=== PATIENT | female | born 1960 | race Caucasian/White ===

== ENCOUNTER 2016-11-20 15:51 | Inpatient (IN) | payer MEDICAID, OTHER ==
[2016-11-20] MEDS ORDERED: Ondansetron INJ* 2 MG/ML VIAL IV ONE (18:43)
--- NOTE | 2016-11-20 19:08 | RAD ---
INDICATION: Nausea and vomiting. History of small bowel obstruction COMPARISON: Abdomen November 23, thousand 13. TECHNIQUE: Erect and supine views of the abdomen are submitted. FINDINGS: Bones: There are no acute bony findings. Soft tissues: There are clips in the gallbladder fossa. The psoas margins are sharp. Bowel gas pattern: There are scattered air-fluid levels with mild dilatation of several small bowel loops. There is a paucity of gas in the colon. The findings are compatible with a small bowel obstruction. Calcifications: There are no abnormal calcifications. Other: None IMPRESSION: SMALL BOWEL OBSTRUCTION.
--- NOTE | 2016-11-20 19:31 | ED ---
Abdominal Pain/Female - HPI Summary HPI Summary: 56F presents with abdominal pain today. She states this feels like her previous SBO. Her most previous SBO was 2 years ago. She has never had surgery for her SBO. She admits to diarrhea, nausea and vomiting. Her says she has been getting twinges of pain once a month in the same area as her SBO that she has been complaining about. She denies any fever, dysuria, flank pain, constipation. She denies any one else being sick. She states she was on a boat when it started. She had her gallbladder removed. She has history of IBS. - History of Current Complaint Chief Complaint: EDOrlyuseaVomitDiarrh Stated Complaint: ABD PAIN,VOMITING Time Seen by Provider: 11/20/16 18:43 Pain Intensity: 0 Allergies/Adverse Reactions: Allergies Allergy/AdvReac Type Severity Reaction Status Date / Time Codeine Allergy Intermediate Nausea Verified 08/16/15 12:28 Propranolol [From Inderal] Allergy Intermediate Tingling Verified 08/16/15 12:28 Home Medications: Home Medications Dicyclomine CAP* [Bentyl CAP*] 20 mg PO QID PRN 11/20/16 [History Confirmed 07/04] Ergocalciferol [Vitamin D] 50,000 unit PO WEEKLY 11/20/16 [History Confirmed 07/04] Ferrous Sulfate TAB* 325 mg PO BID 11/20/16 [History Confirmed 11/20/16] Venlafaxine EXT RELEASE CAP* [Effexor Xr CAP*] 75 mg PO BID 11/20/16 [History Confirmed 11/20/16] busPIRone TAB* [Buspar TAB *] 15 mg PO TID 11/20/16 [History Confirmed 11/20/16] traZODone TAB* [Desyrel TAB*] 100 mg PO BEDTIME PRN 11/20/16 [History Confirmed 11/20/16] PMH/Surg Hx/FS Hx/Imm Hx Endocrine/Hematology History: Reports: Hx Anemia - thalacemia Denies: Hx Diabetes, Hx Unexplained Bleeding Cardiovascular History: Reports: Other Cardiovascular Problems/Disorders - valve problems Denies: Hx Aneurysm, Hx Angina, Hx Angioplasty, Hx Auto Implanted Cardiovert Defib, Hx Cardiac Arrest, Hx Cardiomegaly, Hx Congenital Heart Disease, Hx Congestive Heart Failure, Hx Coronary Artery Disease, Hx Deep Vein Thrombosis, Hx Embolism, Hx Hypercholesterolemia, Hx Hypotension, Hx Hypertension, Hx Pacemaker/ICD, Hx Peripheral Vascular Disease, Hx Rheumatic Fever, Hx Syncope, Hx Valvular Heart Disease GI History: Reports: Hx Obstructive Bowel History: Reports: Other Problems/Disorders - UTI x2 in the past Denies: Hx Renal Disease Musculoskeletal History: Reports: Other Musculoskeletal History - Pulled muscle in lower back in the past couple years Sensory History: Reports: Hx Contacts or Glasses Denies: Hx Cataracts, Hx Eye Injury, Hx Eye Prosthesis, Hx Glaucoma, Hx Legally Blind, Hx Macular Degeneration, Hx Vision Problem, Hx Deafness, Hx Hearing Aid, Hx Hearing Problem, Other Sensory Impairments Opthamlomology History: Reports: Hx Contacts or Glasses Denies: Hx Cataracts, Hx Eye Injury, Hx Eye Prosthesis, Hx Glaucoma, Hx Legally Blind, Hx Macular Degeneration, Hx Vision Problem, Other Sensory Impairments Neurological History: Reports: Hx Migraine Denies: Hx Dementia, Hx Developmental Delay, Hx Headaches, Hx Nerve Disease, Hx Seizures, Hx Spinal Cord Injury, Hx Transient Ischemic Attacks (TIA), Other Neuro Impairments/Disorders Psychiatric History: Reports: Hx Anxiety, Hx Depression, Hx Panic Disorder - Panic attack x1 in the past - Surgical History Surgery Procedure, Year, and Place: cholecystectomy, x1, Hx Anesthesia Reactions: No Infectious Disease History: No Infectious Disease History: Denies: Hx Clostridium Difficile, Hx Hepatitis, Hx Human Immunodeficiency Virus (HIV), Hx of Known/Suspected MRSA, Hx Shingles, Hx Tuberculosis, Hx Known/ Suspected VRE, Hx Known/Suspected VRSA, History Other Infectious Disease, Traveled Outside the [place] in Last 30 Days - Family History Known Family History: Positive: Cardiac Disease - Social History Alcohol Use: None Substance Use Type: Reports: None Smoking Status (MU): Light Every Day Tobacco Smoker Review of Systems Negative: Fever Negative: Chest Pain Negative: Shortness Of Breath Positive: Abdominal Pain, Vomiting, Diarrhea, Nausea All Other Systems Reviewed And Are Negative: Yes Physical Exam Triage Information Reviewed: Yes Vital Signs On Initial Exam: Initial Vitals Temp Pulse Resp BP Pulse Ox 98.1 F 110 20 92/70 100 11/20/16 15:54 11/20/16 15:54 11/20/16 15:54 11/20/16 15:54 11/20/16 15:54 Vital Signs Reviewed: Yes Appearance: Positive: Well-Appearing Skin: Positive: Warm, Dry Head/Face: Positive: Normal Head/Face Inspection Eyes: Positive: Normal, Conjunctiva Clear Respiratory/Lung Sounds: Positive: Clear to Auscultation, Breath Sounds Present Cardiovascular: Positive: Normal, RRR Abdomen Description: Positive: Soft, Other: - tender RUQ moderate, no rebound. Bowel Sounds: Positive: Present Diagnostics - Vital Signs Vital Signs Temp Pulse Resp BP Pulse Ox 11/20/16 18:30 99 19 90/68 100 11/20/16 18:26 98.1 F 104 18 109/68 100 11/20/16 18:25 99 100 11/20/16 18:22 109/68 11/20/16 18:10 97.4 F 105 16 92/63 96 11/20/16 15:54 98.1 F 110 20 92/70 100 - Laboratory Result Diagrams: 11/20/16 19:45 11/20/16 19:45 Lab Statement: Any lab studies that have been ordered have been reviewed, and results considered in the medical decision making process. - Radiology abd Xray Interpretation: Positive (See Comments) - sbo Radiology Interpretation Completed By: Radiologist Abdominal Pain Fem Course/Dx - Course Course Of Treatment: 56F presents with abdominal pain today. She states this feels like her previous SBO. Her most previous SBO was 2 years ago. She has never had surgery for her SBO. She admits to diarrhea, nausea and vomiting. Her says she has been getting twinges of pain once a month in the same area as her SBO that she has been complaining about. She denies any fever, dysuria, flank pain, constipation. She denies any one else being sick. She states she was on a boat when it started. She had her gallbladder removed. She has history of IBS. on exam tender in RUQ. abd xray shows SBO. talked with dr ragland said to call surgery to ask if will admit. dr rosenthal wants hospitalist to admit who agree. - Diagnoses Differential Diagnosis: Positive: Urinary Tract Infection, Other - SBO, gastroenteritis Provider Diagnoses: Small bowel obstruction - Provider Notifications Discussed Care Of Patient With: dr rosenthal Time Discussed With Above Provider: 08:00 - admit to hospitalist service Discharge - Discharge Plan Condition: Stable Disposition: ADMITTED TO [facility]
[2016-11-20] MEDS: NS 0.9% 1000 ML* 2,000 ML IV ONE (19:46)
[2016-11-20 20:01] LABS: Hematocrit 31 % (35-47); Hemoglobin 9.2 g/dl (12.0-16.0); Mean Corpuscular HGB Conc 30 g/dl (31-36); Mean Corpuscular Hemoglobin 20 pg (27-31); Mean Corpuscular Volume 66 fL (80-97); Mean Platelet Volume 7 um3 (7.4-10.4); Red Blood Count 4.71 10^6/ul (4.0-5.4); Red Cell Distribution Width 23 % (10.5-15); White Blood Count 14.7 10^3/ul (3.5-10.8)
[2016-11-20 20:03] LABS: Add Diff/Slide Review? Slide Review Added; Comments Flag Yes
[2016-11-20 20:12] LABS: ALT 10 U/L (7-52); AST 7 U/L (13-39); Albumin 2.8 g/dL (3.2-5.2); Alkaline Phosphatase 93 U/L (34-104); Anion Gap 9 mmol/L (2-11); BUN/Creatinine Ratio 26.4 (8-20); Blood Urea Nitrogen 24 mg/dL (6-24); CO2 Carbon Dioxide 23 mmol/L (22-32); Calcium 8.1 mg/dL (8.6-10.3); Chloride 103 mmol/L (101-111); EGFR African American 81.9 (>60); EGFR Non-African American 63.7 (>60); Globulin 3.7 g/dL (2-4); Glucose 99 mg/dL (70-100); Lipase < 10 U/L (11.0-82.0); Potassium 3.4 mmol/L (3.5-5.0); Sodium 135 mmol/L (133-145); Total Protein 6.5 g/dL (6.4-8.9)
[2016-11-20] MEDS ORDERED: Ondansetron INJ* 2 MG/ML VIAL IV PRN (20:57)
[2016-11-20] MEDS ORDERED: Acetaminophen SUPP* 650 MG SUPP PR PRN (20:57)
[2016-11-20] MEDS ORDERED: NS 0.9% 1000 ML* 1,000 ML IV ONE (21:09)
[2016-11-20] MEDS ORDERED: Iohexol 300* (CONTRAST) 10 ML SDV IV ONE (21:47)
[2016-11-20] MEDS: NS 0.9% 1000 ML* 1,000 ML IV SCH (22:16)
[2016-11-20] MEDS: KCL 10 MEQ/50 ML IVPREMIX* 10 MEQ/50 ML BAG IV SCH (22:18)
[2016-11-20] MEDS: Heparin VIAL(*) 5000 UNITS/ML VIAL (FIVE THOUSAND) SUBCUT SCH (22:58)
[2016-11-21] MEDS: KCL 10 MEQ/50 ML IVPREMIX* 10 MEQ/50 ML BAG IV SCH ×2 (00:16→01:24)
[2016-11-21] MEDS: NS 0.9% 1000 ML* 1,000 ML IV SCH ×2 (01:12→23:00)
--- NOTE | 2016-11-21 01:35 | PN ---
Progress Note - Progress Note Date of Service: 11/21/16 Note: Radiology on-call reported ? closed loop SBO as well as a 7mm mid- to distal R ureteral stone; will need urology consult in AM.
[2016-11-21] MEDS ORDERED: HYDROmorphone* 1 MG/ML 1 ML SYR ONE (02:47)
[2016-11-21] MEDS: HYDROmorphone* 1 MG/ML 1 ML SYR IV PRN ×4 (02:51→11:37)
[2016-11-21 02:56] LABS: Urine Bacteria 1+ (Absent); Urine Bilirubin Negative (Negative); Urine Glucose Negative (Negative); Urine Nitrite Negative (Negative)
[2016-11-21] MEDS: Levofloxacin 750 MG IVPREMIX(* 750 MG/150 ML BAG IVPB SCH (03:09)
--- NOTE | 2016-11-21 03:17 | HP ---
CC: Dr. Flores; Dr. Leigh * HISTORY AND PHYSICAL: DATE OF ADMISSION: 11/20/16 PRIMARY CARE PROVIDER: Dr. Flores. ATTENDING PHYSICIAN WHILE IN THE HOSPITAL: Ck Garcia MD * (report dictated by Alberto Abdul NP). CHIEF COMPLAINT: Abdominal pain. CONSULTING SURGEON: Dr. Leigh. HISTORY OF PRESENT ILLNESS: Ms. Evangelista is a 56-year-old female patient who has a history of thalassemia minor, anemia, history of SBO, anxiety, insomnia, IBS, and history of aortic stenosis because she had an echocardiogram six weeks ago; we will try to get that report from [place]. I am putting an order in for that. She presents today stating that yesterday she developed some lower abdominal discomfort similar with her previous SBOs and associated nausea and vomiting. She states the pain progressed throughout the day yesterday and this morning. The vomiting was getting worse, she was not feeling well. When her returned home from work today, she was still nauseous, having pain and vomiting. The patient was concerned, she felt that this was similar to her previous SBO, so they immediately recognized the symptoms again and the patient decided to come into the hospital to be evaluated. She denied having any fevers or chills. She denied having any chest pain. There is abdominal pain per my HPI and she states that she typically can walk up a flight of stairs and not have any difficulty with this. She came in, she was evaluated. Abdominal x -ray did show that she had SBO, so the hospitalist service was asked to evaluate for admission. PAST MEDICAL HISTORY: Significant for: 1. SBO in the past. 2. Anxiety. 3. Thalassemia minor. 4. Anemia. 5. Insomnia. 6. IBS. 7. Aortic stenosis, followed at [place]. PAST SURGICAL HISTORY: 1. She has had a . 2. Laparoscopic cholecystectomy. HOME MEDICATIONS: According to her recall include: 1. Bentyl 20 mg p.o. 4 times a day as needed. 2. Trazodone 100 mg at bedtime as needed. 3. Effexor 75 mg p.o. b.i.d. 4. BuSpar 15 mg p.o. t.i.d. 5. Iron 1 tablet p.o. b.i.d. 6. Vitamin D 50,000 units weekly. ALLERGIES TO MEDICATIONS: Include CODEINE and PROPANOL. FAMILY HISTORY: Mother had ovarian cancer. Father had liver cancer. SOCIAL HISTORY: She rarely drinks alcohol. She is half a pack a day smoker for 40 years. Surrogate decision make is her , Brian. REVIEW OF SYSTEMS: There is no documented fever. She denied having any significant weight change. There was no double vision. There was no ear discharge. She denied having any rhinorrhea. There was no sore throat. No thyroid enlargement. She denied having any chest pain. There was no orthopnea. There was no nocturnal dyspnea. There was abdominal pain per my HPI. There was nausea and vomiting per my HPI. There was some diarrhea. There was no dysuria, no frequency, no seizure. No loss of consciousness. No pruritus, no skin ulceration. Review of 14 systems completed, all others negative. PHYSICAL EXAMINATION GENERAL: At this time, Ms. Evangelista is a 56-year-old female patient. She is sitting in the ER stretcher. She does not appear to be in any acute distress. She is awake and alert. She is well developed, well nourished. VITAL SIGNS: Blood pressure of 109/68 with a pulse 104, respirations 18, O2 sat of 100%, temperature 98.1. HEENT: Head is atraumatic, normocephalic. Eyes: EOMs are intact. Sclerae are anicteric, not pale. Throat: Oral mucosa appears to be moist. No oropharyngeal erythema. NECK: Supple. LUNGS: Clear to auscultation bilaterally. No wheezes, rales or rhonchi. HEART: Sounds S1 and S2. Regular rate and rhythm. No murmurs, rubs, or gallops. ABDOMEN: Soft. Mildly distended. Bowel sounds hypoactive. EXTREMITIES: Pulses were 2+ throughout. She is able to move all 4 extremities with 5/5 strength. She had no peripheral edema noted. NEUROLOGIC: The patient is awake, alert, and oriented x3. Tongue midline. Human Resources Receptionist are equal. No gross focal deficits. SKIN: Intact. LABORATORY DATA/DIAGNOSTIC DATA: Today revealed a WBC of 14.7, RBC of 4.71, hemoglobin of 9.2, hematocrit of 30, platelet count of 508. Sodium 135, potassium 3.4, chloride 103, bicarbonate 23, BUN 24, creatinine 0.91, glucose 99 , lactic 0.6, calcium 8.1, total bilirubin 0.4, AST 7, ALT 10, alk phos was 93, CRP was 103, lipase less than 10. She had an abdominal x-ray obtained today, impression: Small bowel obstruction. She had an EKG obtained today with impression: No previous one for comparison unfortunately, but the EKG today showed sinus rhythm with a rate of 97. She had no ST elevation. She does appear to have intraventricular conduction delay. No ST elevations or T-wave inversions are noted. Unfortunately, I do not have a previous EKG for comparison. I feel she was inverted in V1 only. Old medical records were reviewed. ASSESSMENT AND PLAN: Ms. Evangelista is a 56-year-old female patient coming into the ER today with complaints of nausea, vomiting, and lower quadrant abdominal pain, on evaluation found to have small bowel obstruction on x-ray, hospitalist service was asked to evaluate for admission. She will be admitted under observation status for: 1. Small bowel obstruction. At this point, she is pretty in tune with her symptoms. She is not nauseous or vomiting. Her pain is not severe. Her exam was pretty benign. She is nontender, mildly distended. I am planning to get a CT of the abdomen and pelvis. I will put an NG tube in if she starts vomiting or worsening pain. We will give her IV fluids, antiemetics. I did touch base with Dr. Leigh. She will evaluate the patient in the morning. We will get a repeat KUB in the morning and her lactic acid was stable. 2. Leukocytosis, this is probably secondary to the vomiting. She does appear to be actively infected. If she spikes the fever, I will put her on antibiotics. I will get blood cultures and a urine and the CT is pending, and we will continue to monitor her closely. 3. History of thalassemia minor with anemia, we will follow her H and H closely. 4. History of anxiety and depression, continue with supportive care. 5. Irritable bowel syndrome, again we will monitor, I will start her Bentyl when able. 6. DVT prophylaxis, I will place her on heparin subcu. 7. History of aortic stenosis. I am going to try to get her records from [place], she had an echo 6 weeks ago. 8. Code status, full code. 9. Fluids, nutrition. She can be n.p.o. She will have normal saline at 100 an hour. TIME SPENT: Time spent on the admission 60 minutes, greater than half the time was spent [id number] with the patient, obtaining my history and physical, the other half time was spent going over the plan of care with the patient and implementing my plan of care. I did discuss the plan of care with my attending, Dr. Garcia, he is in agreement. ALBERTO ABDUL, TELEVISION NEWS REPORTER [id number]/[facility] #: [id number] MTDAdriano
[2016-11-21] MEDS: Heparin VIAL(*) 5000 UNITS/ML VIAL (FIVE THOUSAND) SUBCUT SCH ×3 (05:59→21:23)
[2016-11-21 06:31] LABS: Hematocrit 22 % (35-47); Hemoglobin 6.7 g/dl (12.0-16.0); Mean Corpuscular HGB Conc 30 g/dl (31-36); Mean Corpuscular Hemoglobin 20 pg (27-31); Mean Platelet Volume 7 um3 (7.4-10.4); Red Blood Count 3.34 10^6/ul (4.0-5.4); White Blood Count 5.7 10^3/ul (3.5-10.8)
[2016-11-21 06:33] LABS: Comments Flag Yes; Mean Corpuscular Volume 67 fL (80-97); Red Cell Distribution Width 23 % (10.5-15)
[2016-11-21 06:41] LABS: BUN/Creatinine Ratio 22.4 (8-20); Calcium 6.9 mg/dL (8.6-10.3); EGFR African American 100.9 (>60); EGFR Non-African American 78.4 (>60); Potassium 3.8 mmol/L (3.5-5.0)
--- NOTE | 2016-11-21 08:03 | RAD ---
Indication: Right flank pain. Contrast: Administered 80.7 ml of OMNIPAQUE 300 mgi/ml CT of the abdomen and pelvis was performed after oral and IV contrast administration. Coronal and sagittal reconstructed images were obtained The lung bases demonstrate no pleural fluid, nodules or masses. Heart is of normal size without evidence of pericardial effusion. The liver is normal in size. No focal lesions or intrahepatic ductal dilatation is noted. The patient status post cholecystectomy. The pancreas demonstrates no mass or pancreatic duct dictation. No adrenal lesions are noted. There is right hydronephrosis and hydroureter present. There is a calculus in the distal right ureter measuring up to 6 mm. There is delay of excretion of the right kidney. The left kidney demonstrates no hydronephrosis. There are dilated loops of small bowel noted. There is a possibility of fluid in the distal ileum. The possibility of a small bowel obstruction should BE considered with suggestion of a zone of transition in the right lower quadrant. IMPRESSION: RIGHT HYDRONEPHROSIS WITH A 6 MM CALCULI IN THE DISTAL RIGHT URETER. DELAYED EXCRETION OF THE RIGHT KIDNEY. DILATED LOOPS OF SMALL BOWEL ARE NOTED WITH COLLAPSED DISTAL ILEUM AND NONDISTENTION OF THE DUODENUM. THIS MAY REPRESENT A SMALL BOWEL OBSTRUCTION WITH POSSIBLE CLOSED LOOP OBSTRUCTION.
--- NOTE | 2016-11-21 08:48 | RAD ---
Indication: Small bowel obstruction. Flat plate of the abdomen demonstrates no free air. Moderately dilated loops of small bowel are noted consistent with small bowel obstruction. When compared to previous exam of November 20, 2016 findings appear similar. IMPRESSION: Small bowel obstruction persists.
--- NOTE | 2016-11-21 09:26 | CONSULT ---
Consult Consult: Consult dictated. Impression/plan: Recurrent SBO, has been resolving in the past with no surgical interventions. Patient with multiple loose BMs last night, passing flatus, feels hungry. Abdominal exam unremarkable with no tenderness or distension noted. Despite clinical improvement, AXR with persistent SBO this AM. Right [id number] 7mm ureteral stone, await urology consult. Conservative management at this point, no surgical indications. If no urological procedure are planned for today, she may be started on clear liquid diet.
[2016-11-21 10:54] LABS: Hematocrit 24 % (35-47); Hemoglobin 7.1 g/dl (12.0-16.0)
[2016-11-21 10:58] LABS: Comments Flag Yes
[2016-11-21] MEDS ORDERED: Dexamethasone IV* 4 MG/ML 1 ML (4 MG) IV SLOW PU ONE (12:12)
[2016-11-21] MEDS ORDERED: Famotidine IV* 10 MG/ML 2 ML (20 mg) IV ONE (12:12)
[2016-11-21] MEDS ORDERED: Buffered Lidocaine 0.9% SYRIN* 5 ML/SYR SYRINGE INTRADERM ONE (12:12)
[2016-11-21] MEDS ORDERED: Dexamethasone IV* 4 MG/ML 1 ML (4 MG) ONE (12:15)
[2016-11-21] MEDS ORDERED: Famotidine IV* 10 MG/ML 2 ML (20 mg) ONE (12:15)
[2016-11-21] MEDS ORDERED: Midazolam* 1 MG/ML 5 ML VIAL (5 MG) ONE ×2 (13:00→13:18)
[2016-11-21] MEDS ORDERED: fentaNYL* 50 MCG/ML 2 ML VIAL (100 MCG VIAL) ONE (13:12)
[2016-11-21] MEDS ORDERED: Propofol* 10 MG/ML 20 ML BTL IV PUSH ONE (13:16)
[2016-11-21] MEDS ORDERED: Phenylephrine IV* 40 MCG/ML 10 ML SYRINGE ONE (13:32)
[2016-11-21] MEDS ORDERED: fentaNYL* 50 MCG/ML 2 ML VIAL (100 MCG VIAL) IV PRN (13:33)
[2016-11-21] MEDS ORDERED: HYDROmorphone* 1 MG/ML 1 ML SYR IV PRN ×2 (13:33→16:10)
[2016-11-21] MEDS ORDERED: DiMENhydriNATE IV* 50 MG/ML VIAL IV PUSH PRN (13:33)
[2016-11-21] MEDS ORDERED: Ondansetron INJ* 2 MG/ML VIAL IV PRN (13:33)
--- NOTE | 2016-11-21 13:56 | RAD ---
INDICATION: RIGHT retrograde pyelogram and ureteral stent placement. COMPARISON: November 21, 2016 abdomen radiograph and November 20, 2016 CT. TECHNIQUE: 10 seconds fluoroscopy. FINDINGS: RIGHT retrograde pyelogram is remarkable for severe calyceal blunting. RIGHT ureteral stent placed. Gallbladder fossa surgical clips noted. IMPRESSION: Procedural fluoroscopy. CPT II Codes: 6045F
--- NOTE | 2016-11-21 14:40 | CONS ---
CC: Dr. Garcia* CONSULTATION REPORT: DATE OF ADMISSION: 11/20/16 DATE OF CONSULT: 11/21/16 PATIENT OF: Dr. Ck Garcia REFERRED TO: Karissa Leigh MD (DICTATED BY JOVON KING) REASON FOR CONSULTATION: Abdominal pain and concern for small bowel obstruction. HISTORY OF PRESENT ILLNESS: Ms. Evangelista is a pleasant 56-year-old female who was seen in the emergency room yesterday evening with complaints of progressively worsening abdominal pain for the last 24 hours. The patient notes that her pain started 24 hours prior to her presentation and it appears to be very similar to previous pain she had related to small bowel obstruction. Apparently, the patient had 2 prior episodes of small bowel obstruction in the past 4 years that usually present with lower to mid abdominal pain with some nausea and vomiting as well as mild abdominal distention and usually resolved within 24 to 48 hours after presentation. She notes that the pain started very similar pattern, crampy with sharp episodes up to 10/10, localized diffusely to mid and lower abdomen with associated nausea and multiple episodes of vomiting. She has been passing flatus up to presentation, but upon admission she noticed that she has not passed any flatus or had a bowel movement that day. She was evaluated in the emergency room and had initially an abdominal x-ray that did show a small bowel obstruction for which the patient was admitted under the hospitalist services. The patient went on to have a CT scan of the abdomen and pelvis later yesterday evening that revealed evidence of possible closed loop small bowel obstruction with transition point localized to the right lower quadrant. She also had 6 mm mid to distal right ureteral stone for which a urological consult was also called. The patient was seen in consultation this morning and she reports feeling extremely better after passing multiple loose bowel movements overnight. She notes that she continued to pass flatus and she no longer has any symptoms of nausea or vomiting. She actually feels very hungry this morning and request to start diet if possible. She denies any fevers, chills, blood in the stools or melena. PAST MEDICAL HISTORY: Significant for anxiety and depression. She also has a history of thalassemia minor, anemia, insomnia, irritable bowel syndrome, and aortic stenosis for which she has been followed by [employer] with the last echo performed 6 weeks ago that the patient reports being normal for her. PAST SURGICAL HISTORY: Significant for a laparoscopic cholecystectomy years ago as well as a . HOME MEDICATIONS: Her medications at home include: 1. Bentyl 20 mg p.o. 4 times a day. 2. Trazodone 100 mg q.h.s. as needed. 3. Effexor 75 mg p.o. b.i.d. 4. BuSpar 15 mg p.o. t.i.d. 5. Iron tablet p.o. b.i.d. 6. Vitamin D 50,000 units weekly. ALLERGIES TO MEDICATIONS: She is allergic to CODEINE and PROPANOL. FAMILY HISTORY: Significant for mother with ovarian cancer and father with liver cancer. SOCIAL HISTORY: The patient is a smoker, smokes half a pack a day for the past 40 years. She drinks alcohol rarely and caffeine intake is minimal. REVIEW OF SYSTEMS: See HPI, otherwise negative. She denies any fever, chills, night sweats or recent weight loss. She denies any headache, dizziness, blurred vision, changes in hearing, sore throat, cough or shortness of breath. No chest pain, palpitations or orthopnea. She denies any dysuria, hematuria or urinary frequency. She notes having a right flank discomfort that she thought may be related to sciatic pain, but now after the CT scan findings, she believes that was the first time she is passing a kidney stone. She admits also to abdominal pain upon presentation that has improved overnight. Also, her nausea and vomiting improved as well. PHYSICAL EXAM: General: She is a pleasant, healthy-appearing, middle-aged female, appears healthy and in no acute distress or discomfort at the time of consultation. Vitals: Most recent set of vitals with temperature of 98.4, heart rate of 93, respirations of 16, O2 sat of 100% on room air and blood pressure of 101/49. HEENT: Sclerae anicteric. PERRLA. EOMs intact. Oropharynx is pink, moist, with no exudate. Neck: Supple. Trachea midline. No cervical adenopathy, thyromegaly or JVD. Lungs: Clear to auscultation bilaterally. No rales, wheezes, or rhonchi noted. Heart: Regular rate and rhythm. High pitched 3/6 systolic murmur was noted due to history of aortic stenosis. Back with normal curvature. No CVA tenderness. Breast Exam: Deferred at this time. Abdomen: Soft and nondistended. There is no tenderness throughout the abdomen noted. Bowel sounds were hypoactive throughout. There is no rigidity, guarding or rebound tenderness noted. No hernias, masses or hepatosplenomegaly. Extremities without cyanosis, clubbing, or edema. Neurologic: Grossly intact. Rectal Exam: Deferred at this time. DIAGNOSTIC STUDIES/LAB DATA: The patient had CBC last night with leukocytosis, significant for 15,000 white count that was dropped to normal valve of 5000 this morning. Hemoglobin and hematocrit showed evidence of probable IV fluid dilution, dropped from 9.2 and 31 respectively to 6.7 and 22. Her chemistry with sodium of 137, potassium 3.8, chloride of 111, CO2 of 19, BUN of 17, creatinine of 0.8. Her LFTs essentially within normal limits and lactic acid was normal. Accessory diagnostic data as mentioned above. The patient had an abdominal x- ray last night that revealed evidence of small bowel obstruction followed by a CT scan of the abdomen and pelvis that confirmed possibility of closed loop small bowel obstruction with a transition zone in the right lower quadrant as well as a 6 mm right ureteral stone. Followup abdominal x-ray this morning revealed persistence of small bowel obstruction. IMPRESSION: A 56-year-old female with acute onset of diffuse abdominal pain with nausea and vomiting with CT scan findings consistent with recurrent small bowel obstruction as well as nephrolithiasis with 6 mm stone in the right ureter. PLAN: I went on and discussed with the patient the finding of her exam as well as imaging. She appears to be stable clinically with no evidence of abdominal pain or distention at this time. She also has passed multiple loose bowel movements overnight and feels hungry this morning; however, I am hesitant to start her on clear liquids since she will need a urological consult today. If no urology procedures are planned to be done today, the patient will probably start on clear liquid diet trial and to be advanced slowly tolerated. She does not appear to have any acute abdomen at this time. I will discuss the case with Dr. Leigh and follow her up accordingly. Thank you for this consultation. [facility] JOVON KRAUSE [id number]/[facility] #: [id number] [email or web address]
--- NOTE | 2016-11-21 16:01 | RAD ---
Indication: Right stent placement. Flat plate of the abdomen demonstrates right ureteral stent in place. Dilated loops of small bowel and colon are noted in the nonspecific pattern. IMPRESSION: Right ureteral stent placement.
[2016-11-21] MEDS: HYDROcodone/ACETAMIN 5-325 MG* 1 TAB PO PRN ×2 (16:43→21:21)
--- NOTE | 2016-11-21 17:07 | PN ---
Subjective Date of Service: 11/21/16 Interval History: Pt is feeling well. She states she is starving and wants to eat. She states last night she had loose stools but today no stool. She has been passing gas. No SOB. No abdominal pain. She did have discomfort with urination after having her stent placed and she describes discomfort in her buttock. Objective Active Medications: Acetaminophen (Tylenol Supp*) 650 mg NE Q4H PRN PRN Reason: FEVER/PAIN Hydrocodone Bitart/Acetaminophen (Mart 5-325 Tab*) 1 tab PO Q4H PRN PRN Reason: PAIN Last Admin: 11/21/16 16:43 Dose: 1 tab Heparin Sodium (Porcine) (Heparin Vial(*)) 5,000 units SUBCUT Q8HR [facility] Last Admin: 11/21/16 16:11 Dose: 5,000 units Hydromorphone HCl (Dilaudid Iv*) 0.5 mg IV Q4H PRN PRN Reason: PAIN Levofloxacin/Dextrose (Levaquin 750 Mg Ivpremix(*)) 750 mg in 150 mls @ 100 mls /hr IVPB Q24H [facility] Last Admin: 11/21/16 03:09 Dose: 100 mls/hr Lactated Ringer's (Lactated Ringers 1000 Ml Bag*) 1,000 mls @ 125 mls/hr IV PER RATE [facility] [place] Last Admin: 11/21/16 16:02 Dose: 125 mls/hr Ondansetron HCl (Zofran Inj*) 4 mg IV Q6H PRN PRN Reason: NAUSEA Vital Signs 11/21/16 11/21/16 11/21/16 15:48 15:51 16:01 Temperature 97.3 F 97.3 F Pulse Rate 66 66 Respiratory 16 16 Rate Blood Pressure 87/63 87/63 (mmHg) O2 Sat by Pulse 100 100 100 Oximetry 11/21/16 16:43 Temperature Pulse Rate Respiratory 16 Rate Blood Pressure (mmHg) O2 Sat by Pulse Oximetry Oxygen Devices in Use Now: None Appearance: Middle aged female sitting up in bed, NAD Eyes: No Scleral Icterus Ears/Nose/Mouth/Throat: Mucous Membranes Moist Respiratory: Symmetrical Chest Expansion and Respiratory Effort, Clear to Auscultation Cardiovascular: NL Sounds; No Murmurs; No JVD, RRR, No Edema Abdominal: - - hypoactive BS, soft, NT, ND Extremities: No Clubbing, Cyanosis Skin: No Rash or Ulcers, No Nodules or Sclerosis Neurological: Alert and Oriented x 3 Result Diagrams: 11/21/16 10:47 11/21/16 05:58 Assess/Plan/Problems-Billing Ms Evangelista is a 56 yo F who has a h/o recurrent SBO, 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 - Patient Problems (1) SBO (small bowel obstruction) Current Visit: Yes Status: Acute Code(s): K56.69 - OTHER INTESTINAL OBSTRUCTION SNOMED Code(s): 008253668 Comment: Improving. She has had clears and tolerated them. Will advance to full liquid tonight and likely by tomorrow she can have a low residue diet. (2) Right ureteral stone Current Visit: Yes Status: Acute Code(s): N20.1 - CALCULUS OF URETER SNOMED Code(s): 98255500 Comment: Pt had associated hydronephrosis. She is s/p R ureteral stent placement. She will need to follow up with Dr. Contreras after d/c. She needs to call his office once she gets home so he can set her up for ureteroscopy/stent removal as an outpatient. (3) Anemia Current Visit: Yes Status: Acute Code(s): D64.9 - ANEMIA, UNSPECIFIED SNOMED Code(s): 238847886 Comment: Likely secondary to thalassemia. H/H dropped significantly today-? secondary to dilution. Will hold off on transfusion at this time. Check stool guaiac. If Hb<7 tomorrow, consider transfusion. (4) DVT prophylaxis Current Visit: Yes Status: Acute Code(s): RQO8488 - SNOMED Code(s): 541047167 Comment: SQ heparin (5) Full code status Current Visit: Yes Status: Acute Code(s): Z78.9 - OTHER SPECIFIED HEALTH STATUS SNOMED Code(s): 499188874
[2016-11-21 22:01] LABS: Hematocrit 26 % (35-47); Hemoglobin 7.6 g/dl (12.0-16.0)
[2016-11-21 22:02] LABS: Comments Flag Yes
[2016-11-22] MEDS: NS 0.9% 1000 ML* 1,000 ML IV SCH (01:28)
[2016-11-22] MEDS: HYDROcodone/ACETAMIN 5-325 MG* 1 TAB PO PRN ×2 (02:28→09:29)
[2016-11-22] MEDS: Levofloxacin 750 MG IVPREMIX(* 750 MG/150 ML BAG IVPB SCH (02:32)
[2016-11-22] MEDS: Heparin VIAL(*) 5000 UNITS/ML VIAL (FIVE THOUSAND) SUBCUT SCH (06:07)
--- NOTE | 2016-11-22 08:18 | PN ---
Progress Note - Progress Note Date of Service: 11/22/16 SOAP: Subjective: Pt seen and examined, and chart reviewed. Feeling better and wants to go home. Positive flatus and loose Bms Objective: af vss a and o x3 abdo: soft, ND, Nt normoactive BS Assessment: No evidence of SBO Plan: advdance diet d/c as per hospitalistTYESHA
--- NOTE | 2016-11-22 11:51 | PN ---
Subjective Date of Service: 11/22/16 Interval History: Patient seen and examined at bedside. Pt states that she is feeling well this morning and is anxious to get home. Denies fever, chills, shortness of breath, chest discomfort, N/V/D. Pt reports some burning with urination. She is tolerating a regular diet. Family History: Unchanged from Admission Social History: Unchanged from Admission Past Medical History: Unchanged from Admission Objective Active Medications: Acetaminophen (Tylenol Supp*) 650 mg [place] Q4H PRN Reason: FEVER/PAIN Hydrocodone Bitart/Acetaminophen ([place] 5-325 Tab*) 1 tab PO Q4H PRN Reason: PAIN Heparin Sodium (Porcine) (Heparin Vial(*)) 5,000 units SUBCUT Q8HR YOHAN Hydromorphone HCl (Dilaudid Iv*) 0.5 mg IV Q4H PRN Reason: PAIN Levofloxacin/Dextrose (Levaquin 750 Mg Ivpremix(*)) 750 mg in 150 mls @ 100 mls /hr IVPB Q24H [facility] Ondansetron HCl (Zofran Inj*) 4 mg IV Q6H PRN Reason: NAUSEA Vital Signs 11/21/16 11/21/16 11/21/16 15:48 15:51 16:01 Temperature 97.3 F 97.3 F Pulse Rate 66 66 Respiratory 16 16 Rate Blood Pressure 87/63 87/63 (mmHg) O2 Sat by Pulse 100 100 100 Oximetry 11/21/16 11/21/16 11/21/16 16:43 16:54 16:57 Temperature 97.6 F Pulse Rate 71 84 Respiratory 16 16 Rate Blood Pressure 73/48 81/57 (mmHg) O2 Sat by Pulse 100 Oximetry 11/21/16 11/21/16 11/21/16 17:45 18:37 19:49 Temperature 98.7 F Pulse Rate 86 Respiratory 16 16 Rate Blood Pressure 85/57 (mmHg) O2 Sat by Pulse 99 99 Oximetry 11/21/16 11/21/16 11/21/16 19:57 20:00 20:58 Temperature 97.2 F Pulse Rate 69 Respiratory 16 16 Rate Blood Pressure 63/47 68/48 (mmHg) O2 Sat by Pulse 99 Oximetry 11/21/16 11/21/16 11/21/16 21:21 21:55 23:21 Temperature 97.5 F Pulse Rate 61 Respiratory 14 16 18 Rate Blood Pressure 86/56 (mmHg) O2 Sat by Pulse 99 Oximetry 11/22/16 11/22/16 11/22/16 00:08 00:11 02:28 Temperature 97.5 F Pulse Rate 68 Respiratory 16 16 Rate Blood Pressure 84/51 (mmHg) O2 Sat by Pulse 100 99 Oximetry 11/22/16 11/22/16 11/22/16 02:54 04:28 08:00 Temperature 97.4 F Pulse Rate 68 Respiratory 16 16 16 Rate Blood Pressure 108/75 (mmHg) O2 Sat by Pulse 100 100 Oximetry 11/22/16 11/22/16 08:02 09:29 Temperature 97.7 F Pulse Rate 65 Respiratory 16 18 Rate Blood Pressure 115/67 (mmHg) O2 Sat by Pulse 100 Oximetry Oxygen Devices in Use Now: None Appearance: NAD, laying in bed Eyes: PERRLA Ears/Nose/Mouth/Throat: Mucous Membranes Moist Respiratory: Symmetrical Chest Expansion and Respiratory Effort, Clear to Auscultation Cardiovascular: RRR, - - Grade 3/6 systolic murmur Abdominal: NL Sounds; No Tenderness; No Distention Extremities: No Edema Skin: No Rash or Ulcers, - Neurological: Alert and Oriented x 3, NL Muscle Strength and Tone Lines/Tubes/Other Access: Clean, Dry and Intact Peripheral IV - site benign Nutrition: Taking PO's Result Diagrams: 11/21/16 21:56 11/21/16 05:58 Assess/Plan/Problems-Billing Ms Evangelista is a 56 yo F who has a h/o recurrent SBO, 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 - Patient Problems (1) SBO (small bowel obstruction) Code(s): K56.69 - OTHER INTESTINAL OBSTRUCTION SNOMED Code(s): 622266461 Comment: - Resolved. - Tolerating a regular, low residue diet. (2) Right ureteral stone Code(s): N20.1 - CALCULUS OF URETER SNOMED Code(s): 88490570 Comment: - Pt had associated hydronephrosis. - s/p R ureteral stent placement, POD #1. - She will need to follow up with Dr. Contreras after d/c. She needs to call his office once she gets home so he can set her up for ureteroscopy/stent removal as an outpatient. (3) Anemia Code(s): D64.9 - ANEMIA, UNSPECIFIED SNOMED Code(s): 396924348 Comment: - Likely secondary to thalassemia. - H/H dropped significantly yesterday, but was stable at recheck last evening - ? secondary to dilution. - Pt declined AM labs today, recommend recheck last 11/25 and follow up with PCP (4) DVT prophylaxis Code(s): EEZ7214 - SNOMED Code(s): 614026301 (5) Full code status Code(s): Z78.9 - OTHER SPECIFIED HEALTH STATUS SNOMED Code(s): 758729128 Status and Disposition: Inpatient. Stable for discharge to home today.
[2016-11-22 12:14] VITALS: BP 116/71
--- NOTE | 2016-11-22 15:51 | DS ---
CC: Dr. Contreras; Dr. Flores * DISCHARGE SUMMARY: DATE OF ADMISSION: 11/20/16 DATE OF DISCHARGE: 11/22/16 ATTENDING PHYSICIAN: Nima Hughes * (dictated by Hali Fish NP ) PRIMARY CARE PHYSICIAN: Dr. Flores. PRIMARY DIAGNOSES: 1. Small-bowel obstruction. 2. Right ureteral stone with associated hydronephrosis. 3. Anemia. SECONDARY DIAGNOSES: 1. Thalassemia minor. 2. Irritable bowel syndrome. 3. Aortic stenosis. CONSULTATIONS WHILE IN THE HOSPITAL: 1. JOVON Agudelo, with General Surgery. 2. Dr. Contreras with Urology. PROCEDURES WHILE IN THE HOSPITAL: Status post right ureteral stent placement on 11/21/16. STUDIES WHILE IN THE HOSPITAL: 1. Abdomen x-ray on 11/20/16. Radiologist's impression: Small-bowel obstruction. 2. Abdomen and pelvis CT on 11/20/16. Radiologist's impression: Right hydronephrosis with a 6-mm calculus in the distal right ureter. Delayed excretion of the right kidney. Dilated loops of small bowel are noted with collapsed distal ileum and non-distention of the duodenum. This may represent a small-bowel obstruction with possible closed loop obstruction. 3. Abdomen x-ray from 11/21/16 at 8 a.m. Radiologist's impression: Small- bowel obstruction persists. 4. Retrograde pyelogram on 11/21/16. Radiologist's impression: Right retrograde pyelogram is remarkable for severe calyceal blunting. Right ureteral stent placed. Gallbladder fossa surgical clips noted. 5. Abdomen x-ray on 11/21/16 at 1445. Radiologist's impression: Right ureteral stent placement. DISCHARGE MEDICATIONS: Continued home medications: 1. Ferrous sulfate 325 mg oral twice daily. 2. Vitamin D 50,000 units oral weekly. 3. Trazodone 100 mg oral daily at bedtime as needed for sleep. 4. Bupropion 50 mg oral 3 times daily. 5. Effexor 75 mg oral twice daily. 6. Bentyl 20 mg oral 4 times daily as needed for nausea. HISTORY OF PRESENT ILLNESS/HOSPITAL COURSE: Ms. Evangelista is a 56-year-old female with past medical history significant for thalassemia minor, anemia, history of small-bowel obstruction, anxiety, insomnia, IBS, and a history of aortic stenosis, who presented to the emergency room after developing lower abdominal discomfort similar to previous episodes of small-bowel obstructions with associated nausea and vomiting. The patient had had persistent pain for well over a day and felt that she was vomiting more frequently. Since she continued to have pain with associated nausea and vomiting and felt that this was similar to her previous small-bowel obstruction, she decided to come to the emergency room for further evaluation of her symptoms. It is also to note that the patient has been struggling with what she felt like for 2 weeks was a right buttock pain that she associated with sciatica. While in the emergency room, the patient had an abdominal x-ray showing a small - bowel obstruction and the hospitalists were asked to evaluate the patient for admission. While in the hospital, the patient had a CT of her abdomen showing a 6-mm right renal calculus with associated hydronephrosis. The patient was medically treated with bowel rest and IV hydration for her small-bowel obstruction. This resolved without need for NG tube placement. The patient was noted to have leukocytosis on admission that was felt to be secondary to vomiting. She did not appear to be actively infected. She remained afebrile during her stay. The patient was seen in consultation by Dr. Contreras for her renal calculus and was taken to the operating room on 11/21/16 for a cysto and right ureteral stent placement. The patient has been doing well. Her pain is improving, although she continues to have some right buttock discomfort. She is tolerating a regular low-residue diet. The patient was noted from her admission to yesterday to have a significant drop in her H and H from 9.2 down to 6.7 for her hemoglobin and 31 down to 22 for her hematocrit. It was felt that this may be dilutional. She had serial H and Hs yesterday that the last one drawn last evening was 7.6 and 26. The patient declined to have labs drawn this morning and her leukocytosis resolved. The patient's other labs were unremarkable. The patient had a urinalysis that appears to be dirty and there was no growth for her urine culture. She also had blood cultures drawn that have no growth on day 1. The patient is feeling well and is anxious to be discharged to home today. Ms. Evangelista is stable for discharge to home today. Vital signs are as follows: Temperature 97.7, heart rate 65, respiratory rate 16, O2 sat 100% on room air, blood pressure 115/67. DISCHARGE PLAN: Ms. Evangelista will be discharged to home today. Activity as tolerated. She should be on a regular low-residue diet, advance back to her regular diet once she is feeling better. As far as the patient's renal calculus and recent cysto with right ureteral stent placement, she has been instructed to call Dr. Contreras's office on Thursday morning to set up a followup appointment to have the stent removed accordingly. For the patient's anemia, I suspect part of this is dilutional. She is anemic at baseline due to her thalassemia minor. The patient has been asked to get a repeat CBC drawn on 12/04 and to follow up with her primary care provider, Dr. Flores. She has also been asked to call his office to set up a followup appointment in the next 1 to 2 weeks. The patient has been resumed on all of her previous medications. The patient has been instructed to return to the emergency room for any chest pain, shortness of breath. This is a summarized report of a complex medical history and hospital stay. For further details, please see the entire medical record. TIME SPENT: Time for this discharge was approximately 45 minutes, greater than half of that was spent with the patient discussing discharge plans and instructions. CONDITION ON DISCHARGE: Stable. HALI OMLINA, JAZIEL [id number]/[facility] #: [id number] AUNDREA
--- NOTE | 2016-11-24 12:15 | OP ---
OPERATIVE SUMMARY: DATE OF OPERATION: 11/21/16 DATE OF : 58 SURGEON: El Contreras MD. ANESTHESIOLOGIST: Dr. Adler. ANESTHESIA: Intravenous sedation. PRE-OP DIAGNOSES: 1. Right hydronephrosis. 2. Calculus, right ureter. POST-OP DIAGNOSES: 1. Right hydronephrosis. 2. Calculus, right ureter. OPERATIVE PROCEDURE: Cystoscopy, right retrograde pyelogram, right ureteral calculus manipulation, and right stent insertion. COMPLICATIONS: None. POSTOPERATIVE CONDITION: Stable. INDICATIONS: Sri Evangelista is a 56-year-old lady who was admitted for partial small bowel obstructio n. She was noted to have an obstructing calculus in the right distal ureter. In addition, the init ial urinalysis is suspicious for urinary tract infection. She is now being brought in for right shiv nt insertion to be followed at some point in the future by ureteroscopy with laser lithotripsy or sh ockwave lithotripsy depending on the postoperative x-ray findings. DESCRIPTION OF PROCEDURE: After administration of IV sedation, the patient was placed in dorsal lit hotomy position. Sequential compression devices were in place and functioning. Initial cystoscopy revealed urethral stenosis. The bladder was examined. Guidewire was introduced into the right ure ter. Retrograde pyelogram revealed right hydronephrosis with a dilated proximal ureter. The calcul us in the distal ureter was carefully manipulated proximally with an open-ended catheter and a 6-Nuno wih stent was introduced and positioned under fluoroscopy with good proximal and distal positioning obtained. The patient tolerated the procedure satisfactorily and was transferred back to the [facility] in stable condition. [id number]/[facility] #: [id number]
== END 2016-11-22 13:20 | disposition home or self-care (01) | DRG 247 ==
LOC: ED 15:51 → SSU 20:57 → OBSVTOIN 11-21 15:19
PROVIDERS: ADMIT Hospitalist; ATTEND Internal Medicine
PROC: 0T768DZ Dilation of Right Ureter with Intraluminal Device, Via Natural or Artificial Opening Endoscopic (ICD-10-PCS; 2016-11-21)
PROC: BT1DYZZ Fluoroscopy of Right Kidney, Ureter and Bladder using Other Contrast (ICD-10-PCS; principal; 2016-11-21 13:15)
DX: K56.60 Unspecified intestinal obstruction (principal); N13.2 Hydronephrosis with renal and ureteral calculous obstruction; D64.9 Anemia, unspecified; D56.3 Thalassemia minor; K58.9 Irritable bowel syndrome, unspecified; I35.0 Nonrheumatic aortic (valve) stenosis; F17.210 Nicotine dependence, cigarettes, uncomplicated; F41.9 Anxiety disorder, unspecified; F32.9 Major depressive disorder, single episode, unspecified; D72.829 Elevated white blood cell count, unspecified; Z79.899 Other long term (current) drug therapy; Z88.5 Allergy status to narcotic agent; Z88.8 Allergy status to other drugs, medicaments and biological substances; Z80.41 Family history of malignant neoplasm of ovary; Z80.0 Family history of malignant neoplasm of digestive organs
CPT/HCPCS: 36415; 74000; 74020; 74177; 74420; 80048; 80053; 81003; 81015; 83605; 83690; 85014; 85018; 85025; 86141; 87040; 87086; 93005; 94760; C1876; J1100; J1170; J1580; J1644; J2250; J2405; J2704; J3010; J3480; Q9967

== ENCOUNTER 2016-12-08 08:42 | Day surgery (SDC) | payer OTHER ==
[~2016-12-08 08:42] MED LIST: Buffered Lidocaine 0.9% SYRIN* 5 ML/SYR SYRINGE INTRADERM ONE; Dexamethasone IV* 4 MG/ML 1 ML (4 MG) IV SLOW PU ONE; Famotidine IV* 10 MG/ML 2 ML (20 mg) IV ONE
[2016-12-08] MEDS ORDERED: Dexamethasone IV* 4 MG/ML 1 ML (4 MG) ONE (08:47)
[2016-12-08] MEDS ORDERED: Famotidine IV* 10 MG/ML 2 ML (20 mg) ONE (08:48)
[2016-12-08] MEDS ORDERED: cefTRIAXone(*) 2 GM ADDV.VIAL IVPB ONE (08:48)
[2016-12-08] MEDS ORDERED: Buffered Lidocaine 0.9% SYRIN* 5 ML/SYR SYRINGE ONE (08:48)
[2016-12-08] MEDS ORDERED: Midazolam* 1 MG/ML 2 ML VIAL (2 MG) ONE ×3 (09:22→10:13)
[2016-12-08] MEDS ORDERED: Etomidate* 2 MG/ML 10 ML VIAL ONE (09:22)
[2016-12-08] MEDS ORDERED: fentaNYL* 50 MCG/ML 2 ML VIAL (100 MCG VIAL) ONE (09:23)
[2016-12-08] MEDS ORDERED: Iohexol 180 (CONTRAST) 10 ML SDV IV ONE (09:44)
[2016-12-08] MEDS ORDERED: Glycopyrrolate IV* 0.2 MG/ML 1 ML VIAL ONE (10:25)
[2016-12-08] MEDS ORDERED: Phenylephrine IV* 40 MCG/ML 10 ML SYRINGE ONE (10:25)
[2016-12-08] MEDS ORDERED: HYDROmorphone* 1 MG/ML 1 ML SYR IV PRN (10:40)
[2016-12-08] MEDS ORDERED: fentaNYL* 50 MCG/ML 2 ML VIAL (100 MCG VIAL) IV PRN (10:40)
[2016-12-08] MEDS ORDERED: Ondansetron INJ* 2 MG/ML VIAL IV PRN (10:40)
--- NOTE | 2016-12-08 11:30 | RAD ---
CPT II Codes: 6045F INDICATION: Right ureteral calculus TECHNIQUE: Intraoperative fluoroscopy was provided during retrograde pyelogram and right ureteral stent placement. FINDINGS: 10 spot films depict retrograde pyelography and anatomic placement of a right ureteral stent. Fluoroscopy time: 11 seconds IMPRESSION: As above.
[2016-12-08 11:47] VITALS: BP 89/57
--- NOTE | 2016-12-09 03:25 | OP ---
DATE OF OPERATION: 12/08/16 - [facility] DATE OF : 58 SURGEON: El Contreras MD ANESTHESIOLOGIST: Dr. Varma. ANESTHESIA: General. PRE-OP DIAGNOSES: 1. Right hydronephrosis. 2. Obstructing calculus, right ureter. POST-OP DIAGNOSES: 1. Right hydronephrosis. 2. Obstructing calculus, right ureter. OPERATIVE PROCEDURE: Cystoscopy; right stent removal; right retrograde pyelogram; right uteroscopy; laser lithotripsy of calculus, right ureter; right stent insertion. INDICATIONS: Sri Evangelista is a 56-year-old lady, who had undergone urgent right stent insertion for an obstructing right ureteral calculus and an associated infection. She is now being brought in for definitive treatment of the calculus. COMPLICATIONS: None. POSTOPERATIVE CONDITION: Stable. STENT USED: 8-Stateless stent, right ureter. OPERATIVE FINDINGS: An 8- to 9-mm calculus, impacted, junction of right mid and distal ureter with surrounding edema and inflammation. DESCRIPTION OF PROCEDURE: After induction of general anesthesia, the patient was placed in dorsal lithotomy position. Sequential compression devices were in place and functioning. Initial cystoscopy revealed a normal-appearing bladder. The previously placed right stent was removed. Retrograde pyelogram revealed fullness of the right collecting system. A 6-Stateless semi-rigid ureteroscope was introduced and advanced under direct vision. About 5 to 6 cm above the uterovesical junction, approximately a 7- to 8-mm calculus was noted to be impacted with surrounding edema and inflammation. Using a 550-micron Holmium laser, this was successfully broken up into multiple fragments and all of the sizable fragments were removed using a grasper. An 8-Stateless stent was introduced in position under fluoroscopy with good proximal and distal positioning obtained. My plan is to leave the stent in for at least a couple of weeks to reduce the chances of postoperative stricture given the degree of impaction of the calculus. The patient tolerated the procedure satisfactorily and was transferred back to the recovery area in stable condition. [id number]/[facility] #: [id number] [facility]
== END 2016-12-08 12:18 | disposition home or self-care (01) ==
LOC: OR 08:42
PROVIDERS: ATTEND Urology
DX: N13.2 Hydronephrosis with renal and ureteral calculous obstruction (principal); D56.3 Thalassemia minor; D64.9 Anemia, unspecified; I35.0 Nonrheumatic aortic (valve) stenosis; F17.210 Nicotine dependence, cigarettes, uncomplicated; D72.829 Elevated white blood cell count, unspecified
CPT/HCPCS: 74420; 82365; 88300; C1876; J0696; J1100; J1580; J2250; J3010

== ENCOUNTER 2017-01-21 20:45 | Inpatient (IN) | payer OTHER ==
[2017-01-21] MEDS ORDERED: NS 0.9% 1000 ML* 2,000 ML IV ONE (21:18)
--- NOTE | 2017-01-21 21:56 | RAD ---
INDICATION: Syncope COMPARISON: None. TECHNIQUE: Single AP portable view of the chest was obtained. FINDINGS: Image quality is compromised due to the relative inferiority of a portable chest x-ray. The heart and mediastinum exhibit normal size and contour. There is a pleural-based linear density overlying the lateral aspect of the left lower lobe. Otherwise the lungs are grossly clear. There is no evidence of a large pleural effusion. Visualized bones are normal for the patient's age. IMPRESSION: Likely atelectasis versus scarring at the left lower lobe in this otherwise nonacute chest x-ray.
[2017-01-21 21:58] LABS: Hematocrit 18 % (35-47); Mean Corpuscular HGB Conc 29 g/dl (31-36); Mean Corpuscular Hemoglobin 19 pg (27-31); Mean Platelet Volume 7 um3 (7.4-10.4); Red Cell Distribution Width 20 % (10.5-15); White Blood Count 11.6 10^3/ul (3.5-10.8)
[2017-01-21 22:05] LABS: Comments Flag Yes
[2017-01-21 22:07] LABS: Add Diff/Slide Review? Slide Review Added
[2017-01-21 22:11] LABS: Mean Corpuscular Volume 65 fL (80-97)
[2017-01-21 22:13] LABS: ALT 10 U/L (7-52); AST 14 U/L (13-39); Albumin 2.8 g/dL (3.2-5.2); Alkaline Phosphatase 67 U/L (34-104); Anion Gap 8 mmol/L (2-11); BUN/Creatinine Ratio 15.7 (8-20); Blood Urea Nitrogen 14 mg/dL (6-24); C Reactive Protein 106.89 mg/L (< 5.00); CO2 Carbon Dioxide 23 mmol/L (22-32); Calcium 7.6 mg/dL (8.6-10.3); Chloride 106 mmol/L (101-111); Creatine Kinase 12 U/L (10-223); EGFR African American 84.1 (>60); EGFR Non-African American 65.4 (>60); Globulin 2.8 g/dL (2-4); Glucose 121 mg/dL (70-100); Lipase 11 U/L (11.0-82.0); Magnesium 1.7 mg/dL (1.9-2.7); Potassium 3.3 mmol/L (3.5-5.0); Sodium 137 mmol/L (133-145); Total Protein 5.6 g/dL (6.4-8.9)
[2017-01-21 22:16] LABS: Troponin I 0.02 ng/mL (<0.04)
[2017-01-21 22:28] LABS: Acetaminophen < 15 mcg/mL; Alcohol < 10 mg/dL (<10)
[2017-01-21 22:40] LABS: Hypochromasia 2+; Microcytosis 3+; Tear Drop Cells 1+
[2017-01-21 22:45] LABS: TSH (Thyroid Stimulating Horm) 2.63 mcIU/mL (0.34-5.60)
[2017-01-21] MEDS ORDERED: Ondansetron INJ* 2 MG/ML VIAL IV PRN (23:28)
[2017-01-21] MEDS ORDERED: traZODone TAB* 100 MG PO PRN (23:33)
[2017-01-21] MEDS ORDERED: Dicyclomine CAP* 10 MG PO PRN (23:33)
[2017-01-21] MEDS ORDERED: diPHENhydraMINE IV* 50 MG/ML 1 ml VIAL (BENADRYL) IV ONE (23:35)
[2017-01-21] MEDS ORDERED: Morphine INJ* 2 MG/ML 1 ML CARPUJECT IV ONE (23:52)
[2017-01-22] MEDS: Acetaminophen TAB* 325 MG PO PRN ×4 (01:30→22:29)
--- NOTE | 2017-01-22 01:43 | ED ---
Christal Magana Rebecca, scribed for Gregorio Ragland MD on 01/21/17 at 2126 . Syncope/Near Syncope - HPI Summary HPI Summary: Pt is a 56 y/o F BIBA who presents to ED s/p syncopal episode. Pt reports "all I know is my whole body got very tingly" and "next thing I know I woke up on the floor, screaming." Between 1930 and 1999 tonight while sitting, about to watch a movie, the pt suddenly became unresponsive. Per , immediately prior to the episode, she stated "I feel tingly" then became unresponsive, per . reports she was without a pulse and was "totally floppy." He then began chest compressions and after about 8, she became responsive. He additionally notes L-sided weakness upon becoming conscious, though weakness has not resolved. Pt continued to become more responsive while en route to [facility]. 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 Currently, pt c/o R-sided lower rib pain that began upon regaining consciousness. Pain is currently moderate, ranked 7/10. Additionally notes that she has a slight HAYNES and nausea earlier today. The pt's propane tank was recently change. PMHx thalassemia minor. - History Of Current Complaint Chief Complaint: EDSyncope Time Seen by Provider: 01/21/17 21:08 Hx Obtained From: Patient, Family/Swing Grinder - Onset/Duration: Resolved Context: Witnessed, Loss Of Consciousness Activity At Onset: At Rest - Sitting down to watch a movie Aggravating Factor(s): Nothing Alleviating Factor(s): Spontaneous Resolution Associated Signs And Symptoms: Headache - mild earlier today, Other - Right lower rib pain - Allergies/Home Medications Allergies/Adverse Reactions: Allergies Allergy/AdvReac Type Severity Reaction Status Date / Time Codeine Allergy Intermediate Nausea Verified 01/21/17 23:11 Propranolol [From Inderal] Allergy Intermediate Tingling Verified 01/21/17 23:11 PMH/Surg Hx/FS Hx/Imm Hx Endocrine/Hematology History: Reports: Hx Anemia - thalacemia minor - has had 3 blood transfusion, Other Endocrine/Hematological Disorders - Thalasemia (mild). Transfusions in the past. Denies: Hx Diabetes, Hx Unexplained Bleeding Cardiovascular History: Reports: Hx Valvular Heart Disease - aortic stenosis, Other Cardiovascular Problems/Disorders - valve problems Denies: Hx Aneurysm, Hx Angina, Hx Angioplasty, Hx Auto Implanted Cardiovert Defib, Hx Cardiac Arrest, Hx Cardiomegaly, Hx Congenital Heart Disease, Hx Congestive Heart Failure, Hx Coronary Artery Disease, Hx Deep Vein Thrombosis, Hx Embolism, Hx Hypercholesterolemia, Hx Hypotension, Hx Hypertension, Hx Pacemaker/ICD, Hx Peripheral Vascular Disease, Hx Rheumatic Fever, Hx Syncope GI History: Reports: Hx Irritable Bowel, Hx Obstructive Bowel, Other GI Disorders - hx of small bowel obstruction History: Reports: Hx Kidney Stones - RT URETERAL CALCULUS 12/08/16, Other Problems/Disorders - UTI x2 in the past Denies: Hx Renal Disease Musculoskeletal History: Reports: Other Musculoskeletal History - Pulled muscle in lower back in the past couple years Sensory History: Reports: Hx Contacts or Glasses - both- will wear glasses day of surgery Denies: Hx Cataracts, Hx Eye Injury, Hx Eye Prosthesis, Hx Glaucoma, Hx Legally Blind, Hx Macular Degeneration, Hx Vision Problem, Hx Deafness, Hx Hearing Aid, Hx Hearing Problem, Other Sensory Impairments Opthamlomology History: Reports: Hx Contacts or Glasses - both- will wear glasses day of surgery Denies: Hx Cataracts, Hx Eye Injury, Hx Eye Prosthesis, Hx Glaucoma, Hx Legally Blind, Hx Macular Degeneration, Hx Vision Problem, Other Sensory Impairments Neurological History: Reports: Hx Migraine Denies: Hx Dementia, Hx Developmental Delay, Hx Headaches, Hx Nerve Disease, Hx Seizures, Hx Spinal Cord Injury, Hx Transient Ischemic Attacks (TIA), Other Neuro Impairments/Disorders Psychiatric History: Reports: Hx Anxiety, Hx Depression, Hx Panic Disorder - Panic attack x1 in the past Comment Only: Other Psychiatric Issues/Disorders - Insomnia - Cancer History Hx Chemotherapy: No - Surgical History Surgery Procedure, Year, and Place: cholecystectomy, x1, Hx Anesthesia Reactions: No Infectious Disease History: No Infectious Disease History: Denies: Hx Clostridium Difficile, Hx Hepatitis, Hx Human Immunodeficiency Virus (HIV), Hx of Known/Suspected MRSA, Hx Shingles, Hx Tuberculosis, Hx Known/ Suspected VRE, Hx Known/Suspected VRSA, History Other Infectious Disease, Traveled Outside the [place] in Last 30 Days - Family History Known Family History: Positive: Cardiac Disease - Social History Alcohol Use: Rare Substance Use Type: Reports: None Smoking Status (MU): Current Every Day Smoker Amount Used/How Often: has smoked on and off since 12 years old Review of Systems Positive: Other - Without a pulse during syncopal episode per ; R-lower rib pain Positive: Nausea - earlire today Neurological: Other - Diffuse tingling prior to syncope Positive: Headache - mlid, earlier today, Weakness - L-sided - resolved, Syncope - Resolved All Other Systems Reviewed And Are Negative: Yes Physical Exam - Summary Physical Exam Summary: General: well-appearing, no pain distress Skin: warm, color reflects adequate perfusion, dry Head: normal Eyes: EOMI, KIMBERLY ENT: normal Neck: supple, nontender Respiratory: CTA, breath sounds present Cardiovascular: Tachycardic, murmur, tender in the R lower ribs Abdomen: soft, nontender Bowel: present Musculoskeletal: normal, strength/ROM intact Neurological: normal, sensory/motor intact, A&O x3 Psychological: affect/mood appropriate NIH: 0 GCS: 15 Triage Information Reviewed: Yes Vital Signs On Initial Exam: Initial Vitals Temp Pulse Resp BP Pulse Ox 98.7 F 97 12 85/47 97 01/21/17 21:02 01/21/17 21:02 01/21/17 21:02 01/21/17 21:02 01/21/17 21:02 Vital Signs Reviewed: Yes - [place] Coma Scale Best Eye Response: 4 - Spontaneous Best Motor Response: 6 - Obeys Commands Best Verbal Response: 5 - Oriented Diagnostics - Vital Signs Vital Signs Temp Pulse Resp BP Pulse Ox 01/21/17 21:02 98.7 F 97 12 85/47 97 - Laboratory Lab Results: Lab Results 01/21/17 01/21/17 01/21/17 Range/Units 21:49 21:49 21:49 WBC (3.5-10.8) 10^3/ul RBC (4.0-5.4) 10^6/ul Hgb (12.0-16.0) g/dl Hct (35-47) % MCV (80-97) fL MCH (27-31) pg MCHC (31-36) g/dl RDW (10.5-15) % Plt Count (150-450) 10^3/ul MPV (7.4-10.4) um3 Neut % (Auto) (38-83) % Lymph % (Auto) (25-47) % Cross % (Auto) (1-9) % Eos % (Auto) (0-6) % Baso % (Auto) (0-2) % Absolute Neuts (auto) (1.5-7.7) 10^3/ul Absolute Lymphs (auto) (1.0-4.8) 10^3/ul Absolute Monos (auto) (0-0.8) 10^3/ul Absolute Eos (auto) (0-0.6) 10^3/ul Absolute Basos (auto) (0-0.2) 10^3/ul Absolute Nucleated RBC 10^3/ul Nucleated RBC % Normal RBC Morphology Hypochromasia Microcytosis Tear Drop Cells INR (Anticoag Therapy) 1.11 (0.89-1.11) APTT 27.9 (26.0-36.3) seconds D-Dimer, Quantitative 647 H (Less Than 230) ng/mL Sodium 137 (133-145) mmol/L Potassium 3.3 L (3.5-5.0) mmol/L Chloride 106 (101-111) mmol/L Carbon Dioxide 23 (22-32) mmol/L Anion Gap 8 (2-11) mmol/L BUN 14 (6-24) mg/dL Creatinine 0.89 (0.51-0.95) mg/dL Est GFR ( Amer) 84.1 (>60) Est GFR (Non-Af Amer) 65.4 (>60) BUN/Creatinine Ratio 15.7 (8-20) Glucose 121 H (70-100) mg/dL Lactic Acid (0.5-2.0) mmol/L Calcium 7.6 L (8.6-10.3) mg/dL Magnesium 1.7 L (1.9-2.7) mg/dL Total Bilirubin 0.20 (0.2-1.0) mg/dL AST 14 (13-39) U/L ALT 10 (7-52) U/L Alkaline Phosphatase 67 (34-104) U/L Total Creatine Kinase 12 (10-223) U/L CK-MB (CK-2) 0.6 (0.6-6.3) ng/mL Troponin I 0.02 (<0.04) ng/mL C-Reactive Protein 106.89 H (< 5.00) mg/L B-Natriuretic Peptide 229 H ( - 100) pg/mL Total Protein 5.6 L (6.4-8.9) g/dL Albumin 2.8 L (3.2-5.2) g/dL Globulin 2.8 (2-4) g/dL Albumin/Globulin Ratio 1.0 (1-3) Lipase 11 (11.0-82.0) U/L TSH 2.63 (0.34-5.60) mcIU/mL Acetaminophen < 15 mcg/mL Serum Alcohol < 10 (<10) mg/dL Blood Type Antibody Screen Crossmatch 01/21/17 01/21/17 01/21/17 Range/Units 21:49 21:49 21:49 WBC 11.6 H (3.5-10.8) 10^3/ul RBC 2.70 L (4.0-5.4) 10^6/ul Hgb 5.0 L* (12.0-16.0) g/dl Hct 18 L (35-47) % MCV 65 L (80-97) fL MCH 19 L (27-31) pg MCHC 29 L (31-36) g/dl RDW 20 H (10.5-15) % Plt Count 319 (150-450) 10^3/ul MPV 7 L (7.4-10.4) um3 Neut % (Auto) 86.9 H (38-83) % Lymph % (Auto) 3.0 L (25-47) % Cross % (Auto) 8.8 (1-9) % Eos % (Auto) 0.7 (0-6) % Baso % (Auto) 0.6 (0-2) % Absolute Neuts (auto) 10.1 H (1.5-7.7) 10^3/ul Absolute Lymphs (auto) 0.3 L (1.0-4.8) 10^3/ul Absolute Monos (auto) 1.0 H (0-0.8) 10^3/ul Absolute Eos (auto) 0.1 (0-0.6) 10^3/ul Absolute Basos (auto) 0.1 (0-0.2) 10^3/ul Absolute Nucleated RBC 0.06 10^3/ul Nucleated RBC % 0.5 Normal RBC Morphology Not Reportable Hypochromasia 2+ Microcytosis 3+ Tear Drop Cells 1+ INR (Anticoag Therapy) (0.89-1.11) APTT (26.0-36.3) seconds D-Dimer, Quantitative (Less Than 230) ng/mL Sodium (133-145) mmol/L Potassium (3.5-5.0) mmol/L Chloride (101-111) mmol/L Carbon Dioxide (22-32) mmol/L Anion Gap (2-11) mmol/L BUN (6-24) mg/dL Creatinine (0.51-0.95) mg/dL Est GFR ( Amer) (>60) Est GFR (Non-Af Amer) (>60) BUN/Creatinine Ratio (8-20) Glucose (70-100) mg/dL Lactic Acid 1.2 (0.5-2.0) mmol/L Calcium (8.6-10.3) mg/dL Magnesium (1.9-2.7) mg/dL Total Bilirubin (0.2-1.0) mg/dL AST (13-39) U/L ALT (7-52) U/L Alkaline Phosphatase (34-104) U/L Total Creatine Kinase (10-223) U/L CK-MB (CK-2) (0.6-6.3) ng/mL Troponin I (<0.04) ng/mL C-Reactive Protein (< 5.00) mg/L B-Natriuretic Peptide ( - 100) pg/mL Total Protein (6.4-8.9) g/dL Albumin (3.2-5.2) g/dL Globulin (2-4) g/dL Albumin/Globulin Ratio (1-3) Lipase (11.0-82.0) U/L TSH (0.34-5.60) mcIU/mL Acetaminophen mcg/mL Serum Alcohol (<10) mg/dL Blood Type O Positive Antibody Screen Negative Crossmatch See Detail Result Diagrams: 01/21/17 21:49 01/21/17 21:49 Lab Statement: Any lab studies that have been ordered have been reviewed, and results considered in the medical decision making process. - Radiology CXR Xray Interpretation: Positive (See Comments) - Likely atelectasis versus scarring at the left lower lobe in this otherwise nonacute chest x-ray. ED physiical reviewed this radiology report and agrees. Radiology Interpretation Completed By: Radiologist - EKG 2118 Cardiac Rate: NL - 97 bpm EKG Rhythm: Sinus Rhythm ST Segment: Normal Ectopy: None Course/Dx Assessment/Plan: Pt medications reviewed. ADMIT HOSPITALIST. - Diagnoses Provider Diagnoses: Syncope, Anemia - Physician Notifications Discussed Care of Patient With: Curtis Tripp Time Discussed With Above Provider: 22:30 Instructed by Provider To: Other - Accepts pt for admission. - Critical Care Time Critical Care Time: 30-74 min Discharge - Discharge Plan Condition: Stable Disposition: ADMITTED TO [facility] documentation as recorded by the Christal wick Rebecca accurately reflects the service I personally performed and the decisions made by , Gregorio Ragland MD.
--- NOTE | 2017-01-22 02:10 | HP ---
HISTORY AND PHYSICAL: DATE OF ADMISSION: 01/21/17 PRIMARY CARE PROVIDER: Dr. Flores. HEALTHCARE PROXY: Her , . CODE STATUS: Full. SOURCE OF INFORMATION: History obtained from interview with the patient and her , review of past medical records. RELIABILITY: Good. HISTORY OF PRESENT ILLNESS: This is a 56-year-old female with past medical history of thalassemia minor as well as severe aortic stenosis at an aortic valve area of 0.6 cm/squared in September 2016, (see outside scan records), been in her usual state of health. She went to her car this evening, walked back inside , walked up the stairs and sat in bed and felt like "everything tingled" and then she felt like she was "sick to the stomach" before she woke up on the floor. Her was close by and had been conversing with the patient prior to her loss of consciousness and heard her mention that she felt sick to her stomach and everything was tingling. When he came to see how she was doing, he noticed her unresponsive on the bed. He listened to her chest and noted no breathing. He attempted to palpate her pulse and could not identify a pulse, although he has noted it has been difficult to find her pulse in the past. He started chest compressions and moved her to the floor and noted that "she arched in a seizure-like movement." After approximately 10 compressions, she started to gasp and woke up moaning. He noticed after waking up, her left arm was weaker and she had difficulty getting up from the floor, but she still knew who her was and when her neighbor arrived, who was the [id number] tank crewman, identified him as well. The left arm weakness resolved after about 20 minutes prior to EMS arriving. The patient notes that she "maybe had" seizure at the age of 20 after a loss of consciousness at an event. Her has recently been sick with headaches and crampy waves as well as fever, was thought to represent bronchitis, now resolved. The patient was recently hospitalized in November with a small obstruction, complicated by nephrolithiasis requiring right ureteral stent. Since that time, the patient has had continued right flank pain for which she has been taking Motrin 400 mg 2 to 3 times per day in addition to Tylenol. On presentation to the emergency room, the patient's blood pressure was noted to be 85/47. She has continued to receive a liter of fluid with improvement in her blood pressure. Initial labs revealed a hemoglobin of 5.0 and the hospitalist service was consulted for admission. The patient reports that she does not receive routine blood transfusions, although has received several blood transfusions in the past. First time she received a blood transfusion, she developed tremors and since that time has received premedication with Benadryl. PAST MEDICAL HISTORY: Includes, small bowel obstruction, thalassemia minor, anemia, insomnia, IBS, severe aortic stenosis in the aortic valve area 0.6 in September 2016, history of right ureteral stone, complicated by hydronephrosis and stent in November 2016, history of and laparoscopic cholecystectomy. MEDICATIONS: 1. Unchanged at the time of discharge in November except for increased frequency and dosing of Motrin. 2. Trazodone 100 mg at bedtime as needed. 3. Buspirone 15 mg 3 times daily. 4. Effexor XR 75 mg twice daily. 5. Ibuprofen 800 mg every 6 hours as needed for pain. 6. Ferrous sulfate 325 mg twice daily. 7. Vitamin D 50,000 units weekly. 8. Bentyl 20 mg 4 times a day as needed. 9. Acetaminophen 1000 mg listed as every 4 hours, which should be every 6 hours as needed for pain. ALLERGIES: To CODEINE and PROPRANOLOL. FAMILY HISTORY: Mother with ovarian cancer. Father with liver cancer and a sister with history of seizures. SOCIAL HISTORY: One and a half packs per day of cigarettes x40 years. No alcohol. She is a retired RN. REVIEW OF SYSTEMS: As per HPI, otherwise all other systems negative, specifically negative for shortness of breath, chest pain, nausea, vomiting, diarrhea, constipation, other symptoms other than the right flank pain, headache, diplopia, blurry vision, lightheadedness, changes in strength or sensation. PHYSICAL EXAMINATION GENERAL: Sitting upright, interactive, pleasant, in no apparent distress. VITAL SIGNS: In the emergency room, 85/47, responded to 94/52 status post a liter of normal saline. Heart rate 97, respiratory rate is 12, 97% on room air , T-max 98.7. HEENT: Oropharynx is clear. She has moist mucous membrane. Sclerae are anicteric. NECK: Non-elevated JVD. No cervical or supraclavicular lymphadenopathy. LUNGS: Clear to auscultation. HEART: She has 3/6 systolic ejection murmur throughout her precordium. Regular rhythm. ABDOMEN: Soft, nontender and nondistended. Positive bowel sounds. She has some tenderness over her left lower ribs and right-sided costovertebral angle tenderness. EXTREMITIES: Warm, well perfused without clubbing, cyanosis or edema. No skin changes. PSYCH: No apparent anxiety, agitation or depression. DIAGNOSTIC STUDIES/LAB DATA: Pertinent laboratory data reviewed. White blood cell count is 11.6. She has 86.9% neutrophils. Hemoglobin 5.0 with an MCV of 65, platelets 319,000. INR 1.1. D-dimer is 647. Potassium 3.3, glucose 121, lactic acid 1.2, magnesium 1.7, BNP 229, CRP 106, TSH 2.6. Toxicology is negative for acetaminophen and alcohol. Pertinent data: Sinus tachycardia, left axis. Normal R-wave progression. No ST or T-wave changes. Chest x-ray, formal impression: Likely atelectasis versus scarring in the left lower lobe and is otherwise a non-acute chest x-ray. ASSESSMENT AND PLAN: This is a 56-year-old female with past medical history of thalassemia minor, recent hospital stay with small bowel obstruction as well as ureteral stone status post stents, aortic stenosis, presenting with loss of consciousness, potentially loss of pulse in the setting of worsening anemia. Loss of consciousness - syncope versus seizure versus pulselessness. Weakness in the left arm raises some concern for a transient ischemic attack, given her rapid resolution versus Tyrese's paralysis in the setting of a seizure. The patient's story is that of walking outside, then walking up the stairs before, almost immediately losing consciousness. I do suspect that in the setting of worsening of anemia, she suffered an episode of syncope in the setting of her aortic stenosis. I placed the patient on seizure precautions, checked transthoracic echocardiogram compared to September. Check CT of the head non- contrast, evaluate for any hemorrhage. Treat anemia as below. Anemia. Worsening anemia. Concern for slow GI bleed in the setting of increased Motrin use. One unit of packed red blood cells now given history of severe aortic stenosis. Premedicate with Benadryl. Serial H and H's, additional blood as needed. Check stool for occult blood. Right flank pain in the setting of continued pain as well as leukocytosis. We will check ultrasound of bilateral kidneys and bladder. DVT prophylaxis contraindicated in the setting of potential GI bleed. [id number]/[facility] #: [id number] [facility]
[2017-01-22 02:12] LABS: Urine Bacteria 3+ (Absent); Urine Bilirubin Negative (Negative); Urine Glucose Negative (Negative); Urine Nitrite Positive (Negative)
[2017-01-22] MEDS ORDERED: Morphine INJ* 2 MG/ML 1 ML SYRINGE (TWO MG - NEW SYRINGE VERSION) IV ONE (04:00)
[2017-01-22 05:58] LABS: Hematocrit 19 % (35-47)
[2017-01-22 06:00] LABS: Comments Flag Yes
[2017-01-22 06:04] LABS: Hemoglobin 5.8 g/dl (12.0-16.0)
[2017-01-22 06:15] LABS: BUN/Creatinine Ratio 16.9 (8-20); Calcium 7.5 mg/dL (8.6-10.3); EGFR African American 99.4 (>60); EGFR Non-African American 77.3 (>60); Potassium 3.5 mmol/L (3.5-5.0)
[2017-01-22 06:18] LABS: BUN/Creatinine Ratio 16.7 (8-20); Calcium 7.5 mg/dL (8.6-10.3); EGFR African American 97.9 (>60); EGFR Non-African American 76.1 (>60); Potassium 3.5 mmol/L (3.5-5.0)
--- NOTE | 2017-01-22 07:42 | RAD ---
INDICATION: Loss of consciousness, seizure-like activity, left arm weakness. COMPARISON: There are no prior studies available for comparison. TECHNIQUE: Contiguous axial sections of the brain were obtained from the skull base to the vertex without contrast. FINDINGS: The ventricles, cisterns and sulci are enlarged consistent with diffuse atrophy. No significant focal abnormality or mass effect is seen. There is no evidence for hemorrhage. No significant focal osseous abnormality is seen. The visualized portion of the paranasal sinuses and mastoid air cells appear clear. IMPRESSION: NO EVIDENCE FOR GROSS ACUTE INFARCT, MASS EFFECT OR HEMORRHAGE.
[2017-01-22] MEDS ORDERED: diPHENhydraMINE IV* 50 MG in NS 0.9% 50 ML* 50 ML IVPB ONE (09:30)
[2017-01-22] MEDS ORDERED: diPHENhydraMINE IV* 50 MG/ML 1 ml VIAL (BENADRYL) ONE (09:31)
[2017-01-22] MEDS: Venlafaxine EXT RELEASE CAP* 75 MG PO SCH ×2 (09:53→21:09)
[2017-01-22] MEDS: Ferrous Sulfate TAB* 325 MG PO SCH ×2 (09:53→21:09)
[2017-01-22] MEDS: busPIRone TAB* 15 MG PO SCH ×3 (09:53→21:09)
[2017-01-22] MEDS: Morphine ORAL.SOLN 10 mg* 2 MG/ML UDC 5 ml PO PRN ×2 (11:45→17:44)
--- NOTE | 2017-01-22 13:03 | RAD ---
HISTORY: Right flank pain, status post ureteral stent COMPARISONS: CT dated November 20, 2016 TECHNIQUE: Multiple transverse and longitudinal ultrasound images were obtained of the kidneys and bladder using grayscale and color Doppler imaging. FINDINGS: The study is limited by patient bowel gas. RIGHT KIDNEY: The right kidney is normal in shape, size, contour, and echogenicity. There is moderate pelvocaliectasis and hydroureter. The right kidney measures 11.2 x 4.1 x 4.9 cm. LEFT KIDNEY: The left kidney is normal in shape, size, contour, and echogenicity. There is no hydronephrosis or nephrolithiasis. The left kidney measures 10.9 x 5 x 4.6 cm. BLADDER: The bladder is smooth in contour. Bilateral ureteral jets are identified. The prevoid bladder volume is 290 milliliters.. The postvoid bladder volume is 8 milliliters. AORTA AND IVC: No images are submitted of the vasculature. RETROPERITONEUM: Unremarkable. OTHER: None. IMPRESSION: 1. RIGHT-SIDED HYDRONEPHROSIS. 2. 8 ML POSTVOID RESIDUAL.
--- NOTE | 2017-01-22 13:45 | PN ---
Subjective Date of Service: 01/22/17 Interval History: Patient seen and examined at bedside. Patient states she usually needs a blood transfusion every 5-10 years. She also states that she has not been compliant with her iron medications - more so in the last 2 months. She denies any darkened stool or hematemesis. She states she has been taking ibuprofen for her flank pain. She denied any fevers at home. Currently she denies any dizziness. She wants to have regular food. She has been up and walking around with out any symptoms. She reports chest pain from where her performed compressions. Family History: Unchanged from Admission Social History: Unchanged from Admission Past Medical History: Unchanged from Admission Objective Active Medications: Acetaminophen (Tylenol Tab*) 650 mg PO Q6H PRN Buspirone HCl (Buspar Tab *) 15 mg PO TID YOHAN Dicyclomine HCl (Bentyl Cap*) 20 mg PO QID PRN Ferrous Sulfate (Ferrous Sulfate Tab*) 325 mg PO BID [facility] Ceftriaxone Sodium 1,000 mg/ (Sodium Chloride) 50 mls @ 200 mls/hr IVPB Q24H [facility] Morphine Sulfate (Morphine Oral.Soln 10 Mg*) 10 mg PO Q6H PRN Ondansetron HCl (Zofran Inj*) 4 mg IV Q4H PRN Trazodone HCl (Desyrel Tab*) 100 mg PO BEDTIME PRN Venlafaxine HCl (Effexor Xr Cap*) 75 mg PO BID [facility] 01/22/17 01/22/17 01/22/17 07:35 07:40 07:45 Temperature 98.7 F Pulse Rate 75 Respiratory 18 16 18 Rate Blood Pressure 94/57 (mmHg) O2 Sat by Pulse 98 Oximetry Appearance: sitting up in bed, NAD Eyes: No Scleral Icterus, PERRLA Ears/Nose/Mouth/Throat: NL Teeth, Lips, Gums Neck: NL Appearance and Movements; NL JVP Respiratory: Symmetrical Chest Expansion and Respiratory Effort, Clear to Auscultation Cardiovascular: RRR, No Edema, - - 3/6 holosystolic murmur at RSB Abdominal: NL Sounds; No Tenderness; No Distention Extremities: No Edema Skin: No Rash or Ulcers Neurological: Alert and Oriented x 3, NL Muscle Strength and Tone Lines/Tubes/Other Access: Clean, Dry and Intact Peripheral IV Nutrition: Taking PO's Result Diagrams: 01/22/17 05:15 01/22/17 05:16 Assess/Plan/Problems-Billing Patient is a 56 y/o F w/ PMH significant for thallasemia minor, R ureteral stone 12/04 c/b hydronephrosis s/p stent, aortic stenosis, who presented to the ER 01/21/2017 after a syncopal episode found to have a Hb of 5.0. - Patient Problems (1) Syncope, convulsive Comment: Suspect this was secondary to low BP in the setting of aortic stenosis. Echocardiogram pending to assess valve area. EEG pending as well. Nothing seen on telemetry. (2) Symptomatic anemia Comment: Hb 6.0 after one unit. Will transfuse additional unit and recheck. Check stool for occult blood but it seems like the drop in the past two months can be attributed to non-compliance with iron administration. Goal Hb around 7.0. (3) Aortic stenosis, moderate Comment: JOSE LUIS 0.6 back in the summer. Will recheck echocardiogram. Per patient her cardioologist (Cirilo) wanted to continue medical management as she was not symptomatic. This syncope was in the setting of low H/H but will have to d/ w cardiology once echo report back. (4) Flank pain, acute Comment: Kidney U/S shows R hydro and UA positive. Will get CT A/P without contrast to assess for new stone. Start Ceftriaxone. Flank pain could just be from UTI. (5) DVT prophylaxis Comment: SCDs given possibility of bleed. (6) Full code status Status and Disposition: Inpatient for syncope/symptomatic anemia. Plan to discharge home when stable.
[2017-01-22] MEDS ORDERED: cefTRIAXone VIAL(*) 1,000 MG in NS 0.9% 50 ML* 50 ML IVPB SCH (14:00)
[2017-01-22 15:22] LABS: Hematocrit 24 % (35-47); Hemoglobin 7.5 g/dl (12.0-16.0)
[2017-01-22 15:29] LABS: Comments Flag Yes
--- NOTE | 2017-01-22 16:14 | ECHO ---
Patient: ZACK MARTIN Rec#: [id number] : 1960 Date: 01/22/2017 Age: 56y Height: 167.64 cm / 66.0 in Weight: 60.33 kg / 133.0 lbs Sex: F BSA: 1.68 Room#: [facility] Admit Date#: 01/21/2017 Type: Inpatient Referring: Curtis Tripp MD Reading: Francisco Sorenson DO Cardiac Cath Tech: Loreta WashingtonNAZANIN CC: Gamal Flores MD Transthoracic Echocardiogram Indication: Pulseless s/p CPR, syncope. BP: 95/56 HR: 74 Rhythm: NSR Findings History: Severe , Talassemia minor, 3/6 systolic ejection murmur. Technical Comments: The study quality is good. Completed at 1125. Left Ventricle: The left ventricular chamber size is normal. Mild concentric left ventricular hypertrophy is observed. Global left ventricular wall motion and contractility are within normal limits. There is normal left ventricular systolic function. The estimated ejection fraction is 55-60%. Abnormal left ventricular diastolic function is observed. Abnormal left ventricular diastolic filling is observed, consistent with impaired relaxation. Left Atrium: The left atrium is moderately dilated. Right Ventricle: The right ventricular chamber size and systolic function are within normal limits. Right Atrium: The right atrial cavity size is normal. Aortic Valve: Moderate aortic leaflet calcification is visualized.There is severe restriction of the right and left coronary cusps. The non-coronary cusp opens well. Systolic excursion of the aortic valve cusps is reduced. There is mild aortic regurgitation. There is severe aortic stenosis. The mean gradient of the aortic valve is 73.17 mmHg. The peak velocity is 5.7 m/s. Calculated AoV area 0.6 cm2. Mitral Valve: The mitral valve leaflets are mildly thickened. There is mild mitral regurgitation. There is no evidence of mitral stenosis. Tricuspid Valve: The tricuspid valve leaflets are mildly thickened. There is mild tricuspid regurgitation. There is evidence of mild pulmonary hypertension. There is no tricuspid stenosis. Pulmonic Valve: The pulmonic valve appears normal. There is a trace pulmonic regurgitation. There is no pulmonic stenosis. Pericardium: There is no significant pericardial effusion. Aorta: There is no dilatation of the ascending aorta. There is no dilatation of the aortic arch. The aortic root is normal in size. Pulmonary Artery: The main pulmonary artery is not well visualized. Venous: The inferior vena cava is dilated. There is an approximate 50% respiratory change in the inferior vena cava dimension. Conclusions The left ventricular chamber size is normal. Mild concentric left ventricular hypertrophy is observed. There is normal left ventricular systolic function. The left atrium is moderately dilated. The right ventricular chamber size and systolic function are within normal limits. There is severe aortic stenosis of a bicuspid aortic valve with very high peak velocity and mean gradient in the setting of severe anemia as described within report. There is evidence of mild pulmonary hypertension.. Compared to prior study from 09/2016, the aortic peak velocity and mean gradient are now lower (was 6 m/s and 97 mmHg respectively) and the LVEF is now normal (was hyperdynamic previously). Unsure hemoglobin level at time of prior examination Measurements Name Value Normal Range RVIDd (AP) 2D 3 cm (0.9 - 2.6) RVDdMajor (2D) 3.6 cm (2.2 - 4.4) RAd ISD 4CH 4.1 cm (3.4 - 4.9) RA (A4C)W 4.5 cm (2.9 - 4.6) IVSd (2D) 1.1 cm (0.6 - 1) LVPWd (2D) 1.1 cm (0.6 - 1) LVIDd (2D) 4.7 cm (3.6 - 5.4) LVIDs (2D) 3.69 cm - LV FS (2D) 21 % (25 - 45) Aortic Annulus 1.6 cm (1.4 - 2.6) Ao root diameter (2D) 2.7 cm (2.1 - 3.5) Ascending Ao 3.4 cm (2.1 - 3.4) Aortic arch 1.8 cm (1.8 - 3.4) LA dimension (AP) 2D 4.2 cm (2.3 - 3.8) LAd ISD 4CH 5.1 cm (2.9 - 5.3) LA ISD 4CH W 5.3 cm (2.5 - 4.5) Name Value Normal Range LA ESV SP 4CH (A/L) 89 ml - LA ESV SP 2CH (A/L) 92 ml - LA ESV BP (A/L) 96 ml - LA ESV BP (A/L) index 57.07 ml/m2 - LA ESV SP 4CH (MOD) 83 ml - LA ESV SP 2CH (MOD) 87 ml - Name Value Normal Range MV E-wave Vmax 0.72 m/sec - MV deceleration time 198.5 msec - MV A-wave Vmax 0.98 m/sec - MV E:A ratio 0.73 ratio - LV septal e' Vmax 0.04 m/sec - LV lateral e' Vmax 0.07 m/sec - LV E:e' septal ratio 18 ratio - LV E:e' lateral ratio 10.29 ratio - Name Value Normal Range AV Vmax 5.7 m/sec - AV VTI 144.6 cm - AV peak gradient 129.14 mmHg - AV mean gradient 73.17 mmHg - LVOT diameter 2.1 cm - LVOT VTI 24 cm - LVOT peak gradient 2.7 mmHg - LVOT mean gradient 1.66 mmHg - DOI (VTI) 0.15 ratio - JOSE LUIS (continuity VTI) 0.6 cm2 - BRAYAN Vmax 1.48 m/sec - Name Value Normal Range MR Vmax 6.73 m/sec - MR VTI 234.3 cm - MR flow (PISA) 86.6 ml/sec - MR PISA radius 0.5 cm - MR alias Vmax 61.8 cm/sec - Name Value Normal Range TR Vmax 2.8 m/sec - TR peak gradient 31 mmHg - IVC diameter 2.4 cm - Name Value Normal Range PV Vmax 0.83 m/sec - PV peak gradient 2.74 mmHg - DE end-diastolic Vmax 1.17 m/sec -
--- NOTE | 2017-01-22 16:28 | RAD ---
CLINICAL HISTORY: Syncope and anemia with right hydronephrosis. COMPARISON: Similar CT examination August 16, 2015 TECHNIQUE: Noncontrast CT examination of the abdomen and pelvis from the lung bases through the initial tuberosities. FINDINGS: VISUALIZED LUNG BASES: There are pleural-based linear densities of the right greater than left lung base. This is new since the previous CT examination and could represent atelectasis. There is coarse calcification at the aortic ring and a very small pleural effusion. ABDOMEN AND PELVIS: Evaluation of the solid organs and vasculature is limited without intravenous contrast. The liver, spleen, pancreas and adrenal glands are grossly normal in appearance. The gallbladder is surgically absent with clips in the gallbladder fossa. The left kidney is appearance without focal mass, calcification or signs of hydronephrosis. There is moderate right kidney hydronephrosis. The right ureter is dilated up to 9 mm in diameter. At the distal most right ureter there is a 2 mm calcification. There are no other large calcification seen in the ureter or the urinary bladder. Evaluation of the gastrointestinal tract is limited without oral contrast. There are dilated loops of distal small bowel measuring up to 5.9 cm in diameter (for there seems to be a transition point at the distal small bowel at the low midline abdomen (coronal images 68 through 72). There is no gross retroperitoneal or mesenteric lymphadenopathy. The pelvic viscera is normal in appearance. The abdominal aorta and iliac arteries are normal in course and diameter. Degenerative changes include multilevel loss of intervertebral disc height involving the lower thoracic and lumbar spine.There are no sinister bone lesions. IMPRESSION: 1. There is moderate right-sided hydroureter nephrosis questionably related to a 2 mm calcification in the distal right ureter. 2. There is pathologically dilated small bowel measuring up to 6 cm in diameter with air-fluid levels in the lumen. The transition point appears to be at the low midline abdomen at the distal ileum but evaluation is limited without oral contrast. 3. Additional chronic, degenerative and postsurgical changes described in body the report.
[2017-01-22] MEDS: Dicyclomine CAP* 10 MG PO SCH (21:07)
[2017-01-22 23:17] LABS: Hematocrit 26 % (35-47); Hemoglobin 8.1 g/dl (12.0-16.0)
[2017-01-22 23:21] LABS: Comments Flag Yes
[2017-01-23] MEDS: Morphine ORAL.SOLN 10 mg* 2 MG/ML UDC 5 ml PO PRN ×3 (00:05→12:22)
--- NOTE | 2017-01-23 01:04 | EEG ---
ELECTROENCEPHALOGRAPHY: DATE OF STUDY: - ROOM #445 DATE OF DICTATION: 01/22/17 PATIENT OF: Dr. Tripp. HISTORY: This is a 56-year-old woman who had an episode of cardiac arrest associated with loss of consciousness and subsequent probable convulsion. MEDICATIONS: Include: 1. Trazodone. 2. Dicyclomine. 3. Morphine. 4. BuSpar. 5. Venlafaxine. 6. Acetaminophen. INTERPRETATION: With the patient awake, background consists of moderate amplitude, posterior dominant 8 to 9 Hz rhythm. With the patient drowsy, there is slowing into the theta range. The patient never falls fully asleep. No epileptiform potentials, focal abnormalities, or major asymmetries of background are noted. IMPRESSION: This awake and drowsy EEG is within normal limits. [id number] #: [id number] MTDD
[2017-01-23] MEDS: Acetaminophen TAB* 325 MG PO PRN (04:26)
[2017-01-23 06:02] LABS: Hematocrit 28 % (35-47); Hemoglobin 8.6 g/dl (12.0-16.0); Mean Corpuscular HGB Conc 31 g/dl (31-36); Mean Corpuscular Hemoglobin 22 pg (27-31); Mean Corpuscular Volume 72 fL (80-97); Mean Platelet Volume 7 um3 (7.4-10.4); Red Blood Count 3.88 10^6/ul (4.0-5.4); Red Cell Distribution Width 25 % (10.5-15)
[2017-01-23 06:16] LABS: BUN/Creatinine Ratio 16.5 (8-20); EGFR African American 96.5 (>60); Potassium 3.6 mmol/L (3.5-5.0)
[2017-01-23 06:22] LABS: Add Diff/Slide Review? Slide Review Added; Comments Flag Yes
[2017-01-23 06:54] LABS: Hypochromasia 2+; Macrocytosis 1+; Microcytosis 2+
[2017-01-23 06:55] LABS: Polychromasia 1+
[2017-01-23] MEDS: Venlafaxine EXT RELEASE CAP* 75 MG PO SCH (09:06)
[2017-01-23] MEDS: Ferrous Sulfate TAB* 325 MG PO SCH (09:06)
[2017-01-23] MEDS: busPIRone TAB* 15 MG PO SCH (09:07)
[2017-01-23] MEDS: Dicyclomine CAP* 10 MG PO SCH ×2 (09:07→12:22)
--- NOTE | 2017-01-23 11:06 | PN ---
Subjective Date of Service: 01/23/17 Interval History: Patient seen and examined at bedside. Patient denies dizziness. No BM yet. Family History: Unchanged from Admission Social History: Unchanged from Admission Past Medical History: Unchanged from Admission Objective Active Medications: Acetaminophen (Tylenol Tab*) 650 mg PO Q6H PRN Buspirone HCl (Buspar Tab *) 15 mg PO TID [facility] Dicyclomine HCl (Bentyl Cap*) 20 mg PO QID YOHAN Ferrous Sulfate (Ferrous Sulfate Tab*) 325 mg PO BID [facility] Ceftriaxone Sodium 1,000 mg/ (Sodium Chloride) 50 mls @ 200 mls/hr IVPB Q24H YOHAN Morphine Sulfate (Morphine Oral.Soln 10 Mg*) 10 mg PO Q6H PRN Ondansetron HCl (Zofran Inj*) 4 mg IV Q4H PRN Trazodone HCl (Desyrel Tab*) 100 mg PO BEDTIME PRN Venlafaxine HCl (Effexor Xr Cap*) 75 mg PO BID [facility] 01/23/17 01/23/17 01/23/17 07:45 07:48 08:36 Temperature 98.1 F Pulse Rate 85 Respiratory 16 18 16 Rate Blood Pressure 83/58 (mmHg) O2 Sat by Pulse 94 Oximetry Oxygen Devices in Use Now: None Appearance: sitting up in bed, NAD Eyes: No Scleral Icterus, PERRLA Ears/Nose/Mouth/Throat: NL Teeth, Lips, Gums Neck: NL Appearance and Movements; NL JVP Respiratory: Symmetrical Chest Expansion and Respiratory Effort, Clear to Auscultation Cardiovascular: NL Sounds; No Murmurs; No JVD, RRR Abdominal: NL Sounds; No Tenderness; No Distention Extremities: No Edema Skin: No Rash or Ulcers Neurological: Alert and Oriented x 3, NL Muscle Strength and Tone Lines/Tubes/Other Access: Clean, Dry and Intact Peripheral IV Nutrition: Taking PO's Result Diagrams: 01/23/17 05:31 01/23/17 05:31 Assess/Plan/Problems-Billing Patient is a 56 y/o F w/ PMH significant for thallasemia minor, R ureteral stone 12/04 c/b hydronephrosis s/p stent, aortic stenosis, who presented to the ER 01/21/2017 after a syncopal episode found to have a Hb of 5.0. - Patient Problems (1) Syncope, convulsive (2) Symptomatic anemia (3) Urinary tract infection (4) Aortic stenosis, moderate (5) Flank pain, acute (6) DVT prophylaxis (7) Full code status Status and Disposition: Inpatient for syncope/symptomatic anemia. Patient stable to be discharged home.
[2017-01-23 11:26] VITALS: BP 112/71
--- NOTE | 2017-01-24 03:16 | DS ---
CC: Dr. Flores * DISCHARGE SUMMARY: DATE OF ADMISSION: 01/21/17 DATE OF DISCHARGE: 01/23/17 PRIMARY CARE PHYSICIAN: Dr. Flores. UROLOGIST: El Contreras MD. ATTENDING PHYSICIAN: Donny Byrnes MD * (report dictated by Ernestine Leigh NP). PRIMARY DIAGNOSES: 1. Syncope secondary to severe anemia. 2. Severe aortic stenosis. 3. History of kidney stone, now with possible ureteral stricture, right-sided hydronephrosis. 4. Urinary tract infection. SECONDARY DIAGNOSES: 1. Thalassemia minor. 2. Insomnia. 3. Irritable bowel syndrome. STUDIES WHILE IN THE HOSPITAL: 1. Transthoracic echocardiogram from 01/22/17. The left ventricular chamber size is normal. Mild concentric left ventricular hypertrophy is observed. There is normal left ventricular systolic function. The left atrium is mildly dilated. The right ventricular chamber size and systolic function are within normal limits. There is severe aortic stenosis of the bicuspid aortic valve with very heavy thalassemia gradient in the setting of severe anemia as described within the report. There is evidence of mild pulmonary hypertension. 2. CT of the brain without contrast, 01/21/17. No evidence for gross acute infarct, mass effect or hemorrhage. 3. 01/22/17, ultrasound of the renal bladder, right-sided hydronephrosis, 8 mL postvoid residual. 4. EEG. This is an awake and drowsy EEG within normal limits. 5. 01/22/17 CT scan of the abdomen and pelvis without contrast, there is moderate right-sided hydroureter nephrosis questionably related to 2 mm calcification at the distal right ureter. There is pathologically dilated small bowel measuring up to 6 cm in diameter with air fluid levels in the lumen. The transition point appears to be the low midline abdomen at the distal limb but evaluation limited without oral contrast. Additional chronic degenerative postsurgical changes described in the body of the report. 6. Chest x-ray, 01/417, likely atelectasis versus scarring at the left lower lobe in this otherwise non-acute chest x-ray. MEDICATIONS: New medications: 1. Ciprofloxacin 500 mg oral twice daily for 5 days. 2. Morphine 7.5 mg oral every 6 hours as needed for pain. The following medications are all medications the patient came in on: 1. Iron sulfate 325 mg oral twice daily. 2. Vitamin D 50,000 units oral weekly. 3. Trazodone 100 mg oral at bedtime. 4. BuSpar 15 mg oral 3 times daily. 5. Effexor XR 75 mg oral twice daily. 6. Bentyl 20 mg oral 4 times daily. 7. Tylenol extra strength 1000 mg oral every 4 hours. Discontinue Advil. HISTORY OF PRESENT ILLNESS AND HOSPITAL COURSE: Ms. Evangelista is a 56-year-old female with past medical history of thalassemia minor as well as severe aortic stenosis who had a syncopal episode shortly after going up the stairs to her room. After the syncopal episode, she had some seizure-like activity and is brought to the emergency room for further evaluation. In the emergency room, the patient was found to have a blood pressure of 85/47 as well as hemoglobin of 5. She was admitted to the telemetry floor for further monitoring. For her severe anemia, she was transfused a total of 2 units of blood. Her hemoglobin came up to around 8.1 and on the day of discharge she was 8.6. A stool was checked for blood, which was negative. Likely, this is from her thalassemia minor. The patient states she has been noncompliant with her iron in the past 2 months and this would make sense as 2 months ago her hemoglobin was 7.6. Once her hemoglobin was stable, her blood pressure improved as well and at the day of discharge her blood pressure was 112/71. For her syncope/seizure workup, she had an EEG that was negative and she had a transthoracic echocardiogram that was similar to a transthoracic echocardiogram she had in her primary care provider's office just a month ago. I discussed with the supervisor powder and primer canning here and attempted to contact her primary care provider to see if he was interested in an urgent valve evaluation. Although this is symptomatic syncope in the setting of severe aortic stenosis, it is likely that this was secondary to her severe anemia. She will follow up next week with her primary care provider and at that time he can decide whether or not she needs to be sent to a cardiothoracic surgeon and be considered for aortic valve replacement. The patient also complained of flank pain. She had obstructive uropathy 2 months ago. During that time she had stent placement, lithotripsy and stent removal with subsequent replacement to prevent stricture. The patient had an abdominal ultrasound that showed right hydronephrosis and subsequently had a CT scan of her abdomen and pelvis without contrast. This showed a possible 2 mm stone in the distal right ureter. I have reviewed the scan with Dr. López from Urology who suggested this may be a stricture. The patient did have a positive urinalysis and was treated with ceftriaxone and will be discharged on ciprofloxacin yet. Urology felt that this could be treated as an outpatient as she did not have significant leukocytosis and/or sepsis. The patient will have a followup next week with Urology to address the possible stricture. Incidentally on her CAT scan, she was shown to have dilated small loops of bowel consistent with possibly a small bowel obstruction. The patient has irritable bowel syndrome and takes Bentyl on a regular basis. The patient had active bowel sounds and was able to tolerate a regular diet without any nausea or vomiting. Hence, no further workup was pursued. PHYSICAL EXAMINATION: On 01/24/17, vitals were as follows: Temperature 97.4, heart rate 72, respiratory rate 18, blood pressure 112/71, oxygen saturation 94 % on room air. At this point, the patient is stable for discharge. DISCHARGE PLANNING: The patient is discharged on a regular diet with activity as tolerated. The patient has been instructed to follow up with her primary care provider within 5 to 7 days. The patient has an appointment with Dr. Contreras on 01/28/17 at 10:30 a.m. She has appointment with her primary care prior on 01/30/17 at 9:20 a.m. The patient should return to the hospital if she experiences any further syncope, lightheadedness or dizziness, as well as high fevers and severe right flank pain. I have reviewed all of these instructions with the patient, she is agreeable to discharge today. This is a summarized report of the complex medical history and hospital stay. For more details, please see the entire medical record. TIME SPENT: Time for this discharge was 60 minutes, and 35 minutes were spent with the patient discussing medications at discharge and followup instructions. CONDITION ON DISCHARGE: Stable. ERNESTINE LEIGH NP [id number]/[facility] #: [id number] AUNDREA
== END 2017-01-23 13:10 | disposition home or self-care (01) | DRG 663 ==
LOC: ED 20:45 → MEDTELE 23:28
PROVIDERS: ADMIT Internal Medicine; ATTEND Hospitalist
PROC: 30233N1 Transfusion of Nonautologous Red Blood Cells into Peripheral Vein, Percutaneous Approach (ICD-10-PCS; principal; 2017-01-21)
DX: D56.3 Thalassemia minor (principal); K56.609 Unspecified intestinal obstruction, unspecified as to partial versus complete obstruction; N13.6 Pyonephrosis; J98.11 Atelectasis; I35.0 Nonrheumatic aortic (valve) stenosis; G47.00 Insomnia, unspecified; K58.2 Mixed irritable bowel syndrome; R55 Syncope and collapse; Z79.1 Long term (current) use of non-steroidal anti-inflammatories (NSAID); Z79.899 Other long term (current) drug therapy; Z88.5 Allergy status to narcotic agent; Z88.8 Allergy status to other drugs, medicaments and biological substances; F17.210 Nicotine dependence, cigarettes, uncomplicated; Z80.41 Family history of malignant neoplasm of ovary; Z80.0 Family history of malignant neoplasm of digestive organs; R10.9 Unspecified abdominal pain; Z91.14 Patient's other noncompliance with medication regimen
CPT/HCPCS: 36415; 70450; 71010; 74176; 76770; 80048; 80053; 80320; 80329; 81003; 81015; 82272; 82375; 82550; 82553; 83605; 83690; 83735; 83880; 84443; 84484; 85014; 85018; 85025; 85379; 85610; 85730; 86140; 86850; 86900; 86901; 86922; 87077; 87086; 87186; 93005; 93306; 95816; A9270-GY; G0480; J0696; J1200; J2270; J2405; P9040